=== PATIENT | male | born 1935 | race Caucasian/White ===

== ENCOUNTER → 2016-09-02 | Outpatient (CLI) | payer BC ==
[~2016-09-02] MED LIST: ADVIN50050 INH; CETI10TA84 PO; CHOL200010 OR; CMD5 PO; DILT-115 PO; METO25TA3 PO; MULTI VITAMIMINERALS OR; OMEG120013 OR; PARO40TA2 PO; SYN112 PO; TELM80TA6 PO
--- NOTE | 2016-09-02 12:07 | DIAGNOSTIC IMAGING REPORT ---
LEFT SHOULDER MIN 2 VIEWS ROUTINE CLINICAL HISTORY: PAIN IN LEFT SHOULDER pain COMPARISON: None. DISCUSSION: Moderate degenerative change left glenohumeral joint. Moderate degenerative change acromioclavicular joint. Apical pleural thickening with associated fibrocalcific change. This radiographically appears chronic. There is no evidence for soft tissue swelling. IMPRESSION: Moderate degenerative change. No acute bony abnormality. Electronically signed by: Julius Voss M.D. 09/02/2016 12:05 PM
== END | disposition home or self-care (01) ==
LOC: C.RAD1850 11:44
PROVIDERS: ATTEND Nurse Practitioner Family
DX: M25.512 Pain in left shoulder (principal); M25.612 Stiffness of left shoulder, not elsewhere classified; M19.012 Primary osteoarthritis, left shoulder

== ENCOUNTER → 2017-11-18 | Outpatient (CLI) | payer BC ==
--- NOTE | 2017-11-18 12:20 | DIAGNOSTIC IMAGING REPORT ---
L HIP UNILATERAL 2 VIEWS CLINICAL HISTORY: [id number] LEFT HIP PAIN COMPARISON: None. DISCUSSION: No acute fractures are visualized. There is mild joint space narrowing. There are no erosive or destructive changes. Surgical clips are visualized in the low pelvis. IMPRESSION: 1. No acute fractures 2. Mild joint space narrowing Electronically signed by: Noe Mcgrath M.D. 11/18/2017 12:19 PM Dictated Date/Time: 11/18/2017 12:18 PM
== END | disposition home or self-care (01) ==
LOC: C.RAD1850 11:57
PROVIDERS: ATTEND Family Medicine
DX: S79.912A Unspecified injury of left hip, initial encounter (principal); X58.XXXA Exposure to other specified factors, initial encounter

== ENCOUNTER 2023-04-25 12:19 | Inpatient (IN) ==
[2023-04-25] MEDS ORDERED: SODIUM CHLORIDE 0.9% 1,000 ML IV SCH (12:45)
[2023-04-25] MEDS ORDERED: ACETAMINOPHEN 1,000 MG/100 ML VIAL IV STA (12:45)
--- NOTE | 2023-04-25 13:15 | XRay Report ---
XR chest 1V portable CLINICAL HISTORY: Sepsis. COMPARISON STUDY: Chest radiograph August 17, 2012. FINDINGS: Right paratracheal fullness with leftward deviation of the trachea is again noted. This was shown on prior exam. No pneumothorax or pleural effusion is present. There is no consolidation to akers ggest pneumonia. There is mild cardiomegaly. Subtle interstitial prominence is noted. No overt pulmon jose j edema. Postoperative findings within the spine are partially imaged. There is a loop recorder. IMPRESSION: 1. No consolidation to suggest pneumonia. 2. Cardiomegaly with pulmonary vascular congestion. ACT 112: Negative or not required by law. Electronically signed by: Juan Hernández M.D. 04/25/2023 1:14 PM
[2023-04-25 13:26] LABS: HCO3 VBG 27 mmol/L; Oxygen Saturation VBG < 60.0 %; PCO2 VBG 44 mmHg (38-50); PO2 VBG 26 mmHg
--- NOTE | 2023-04-25 13:26 | Emergency Department Note ---
Impression & Plan Acute confusion, COVID-19, Acute hyponatremia, Non-ST elevation UT (NSTEMI), Elevated CK ED Provider Note HISTORY OF PRESENT ILLNESS: Patient is an 88-year-old male presenting with generalized weakness and after being found down. Patient reportedly was found down on the floor this morning by family when they went to check on him. Patient is unable to recall the events of's to what happened. Son is at bedside and reports that they visited the patient's at [facility] a few days ago and the patient's tested positive for COVID yesterday. Patient had a fever last night. Patient denies any complaints on arrival to the ER. Son reports that he believes his father hit his head when he fell. He is on Coumadin for history of A-fib. Son reports that the patient is more confused than his normal self. ROS: as above PHYSICAL EXAM: Constitutional: Patient appears in no acute distress. HENT: Head: Normocephalic and atraumatic. Eyes: EOMI, PERRL Mouth/Throat: Mucous membranes moist. Neck: Trachea midline. Neck supple. Cardiovascular: Irregular rhythm. No murmurs, rubs or gallops. Intact distal pulses. Pulmonary/Chest: No respiratory distress. Breath sounds clear and equal bilaterally. No wheezes or rales. Abdominal: Abdomen soft, no tenderness, rebound or guarding. Musculoskeletal: Ecchymosis to right anterior shoulder. Skin: Warm and dry. No rash, erythema, pallor or cyanosis Psychiatric: Appropriate mood and affect for situation. Neurological: Alert to self. CN II-XII grossly intact, moving all extremities equally and fully. MDM: - Vitals signs showed fever and hypertension. - History obtained via patient's son, given patient's confusion. Patient presents with generalized weakness and being found down. Patient was found down by a family member today when they went to check on him. Patient is amnestic to the events leading up to the fall. He is on Coumadin for history of A-fib. Patient visited his at a retirement and she recently tested positive for COVID. Patient had a fever last night. - Chronic conditions affecting care: Afib - Differential diagnoses include, but are not limited to: Intracranial hemorrhage; ACS; pneumonia; UTI; electrolyte abnormality - Order placed for continuous cardiac monitoring. At this time, monitor showed rate of 70 bpm with irregular rhythm, per my interpretation. - External medical records reviewed. EMS run sheet reviewed. Patient was vi tally stable in route. No medications were given prehospital. - EKG reviewed by myself showed atrial fibrillation. Rate 93 bpm. QTc 427. No acute ischemic changes. Noted to have an incomplete right bundle branch block. - Laboratory workup interpreted by myself showed leukopenia (WBC 4.33); anemia (Hgb 10.2); hyponatremia (Na 129); elevated CK (2696); elevated troponin (38.7); normal procalcitonin - VBG WNL - CT head wo contrast negative for acute intracranial pathology. - Viral respiratory panel positive for COVID-19 infection. - UA negative for infection - CXR negative for pneumonia, per my interpretation. Radiology notes cardiomegaly with pulmonary vascular congestion. - Repeat troponin elevated at 82.2 - Patient given 1g IV tylenol for fever in ER. - Given 2L NS. - Discussion was had with health care social worker about patient's case and need for admission - Hospitalist consulted for admission - [facility] ASSESSMENT AND PLAN: Diagnosis: Confusion; found down; elevated creatinine kinase; hyponatremia; COVID-19 infection; NSTEMI Plan: admit Past Med/Surg History Social History Smoking Status: Never smoker Hx Alcohol Use: Yes Alcohol type: wine Hx Substance Use: No Preferred Language: [place] Communication Ability: Effective Chocolate Packer Required: Yes Beliefs That Will Affect Care: None Current Living Situation: Spouse Feels Safe at Home: Yes Assistive Devices: Glasses Allergies Allergies Allergy/AdvReac Type Severity Reaction Status Date / Time clarithromycin Allergy Severe HIVES Verified 04/25/23 15:13 Home Meds Home Medications Medication Instructions Recorded Confirmed cholecalciferol (vitamin D3) 50 50 mcg PO DAILY 04/25/23 04/25/23 mcg (2,000 unit) tablet (Vitamin D3) dabigatran etexilate 150 mg capsule 150 mg PO BID 04/25/23 04/25/23 fluticasone 500 mcg-salmeterol 50 1 ea inhalation BID 04/25/23 04/25/23 mcg/dose blistr powdr for inhalation (Wixela Inhub) fluticasone propionate 50 1 spray intranasal BID PRN 04/25/23 04/25/23 mcg/actuation nasal Congestion spray,suspension gabapentin 600 mg tablet 600 mg PO QID 04/25/23 04/25/23 levothyroxine 112 mcg tablet 112 mcg PO DAILYBB 04/25/23 04/25/23 metoprolol succinate 25 mg 12.5 mg PO QAM 04/25/23 04/25/23 tablet,extended release 24 hr Results & Data (ED) Vital Signs Vital Signs - 24 hr 04/25/23 12:08 04/25/23 12:08 04/25/23 12:39 Temperature 38.7 C H Temperature Source Temporal Artery Scan Pulse Rate 89 87 Respiratory Rate 16 16 Blood Pressure 164/75 H Blood Pressure Mean 104 Pulse Oximetry 92 Oxygen Delivery Method Room Air Sepsis Recent Fever Within 48 Hours No Sepsis New/Unexplained Change in Mental Status N/A Sepsis Action Taken by Nursing No Action Required 04/25/23 13:48 04/25/23 13:54 04/25/23 14:01 Temperature 39.5 C H Temperature Source Oral Pulse Rate 82 84 Respiratory Rate 23 23 Blood Pressure 129/68 120/58 L Blood Pressure Mean 88 78 Pulse Oximetry 92 92 Oxygen Delivery Method Room Air Room Air Sepsis Recent Fever Within 48 Hours Sepsis New/Unexplained Change in Mental Status Sepsis Action Taken by Nursing 04/25/23 14:30 04/25/23 14:50 04/25/23 15:00 Temperature 38.5 C H Temperature Source Oral Pulse Rate 80 80 Respiratory Rate 20 19 Blood Pressure 119/59 L 109/61 Blood Pressure Mean 79 77 Pulse Oximetry 95 94 Oxygen Delivery Method Room Air Room Air Sepsis Recent Fever Within 48 Hours Sepsis New/Unexplained Change in Mental Status Sepsis Action Taken by Nursing 04/25/23 15:30 04/25/23 16:00 04/25/23 16:41 Temperature Temperature Source Pulse Rate 78 77 77 Respiratory Rate 18 20 17 Blood Pressure 116/57 L 110/68 109/68 Blood Pressure Mean 76 82 81 Pulse Oximetry 95 95 96 Oxygen Delivery Method Room Air Room Air Room Air Sepsis Recent Fever Within 48 Hours Sepsis New/Unexplained Change in Mental Status Sepsis Action Taken by Nursing 04/25/23 17:00 04/25/23 17:23 04/25/23 17:30 Temperature Temperature Source Pulse Rate 67 78 67 Respiratory Rate 16 18 Blood Pressure 103/60 115/55 L Blood Pressure Mean 74 75 Pulse Oximetry 94 94 Oxygen Delivery Method Room Air Room Air Sepsis Recent Fever Within 48 Hours Sepsis New/Unexplained Change in Mental Status Sepsis Action Taken by Nursing Laboratory Data 04/25/23 13:17 04/25/23 13:11 Lab Results 04/25/23 04/25/23 04/25/23 Range/Units 12:44 13:11 13:11 WBC (4.8-10.8) K/ul RBC (4.70-6.10) M/uL Hgb (14.0-18.0) g/dl Hct (42.0-52.0) % MCV (80.0-100.0) fL MCH (25.0-34.0) pg MCHC (32.0-36.0) g/dL RDW Std Deviation (36.4-46.3) fL RDW Coeff of Gulshan (11.5-14.5) % Plt Count (130-400) K/uL Immature Gran % (Auto) % Neut % (Auto) % Lymph % (Auto) % [place] % (Auto) % Eos % (Auto) % Baso % (Auto) % Neut # (Auto) (1.40-6.50) K/uL Lymph # (Auto) (1.20-3.40) K/uL [place] # (Auto) (0.11-0.59) K/uL Eos # (Auto) (0.00-0.50) K/uL Baso # (Auto) (0.00-0.20) K/uL Immature Gran # (Auto) (0.01-0.20) K/uL Absolute Nucleated RBC (0.00-0.12) K/uL Nucleated RBC % (auto) % Polychromasia Hypochromasia Basophilic Stippling Anisocytosis Tear Drop Cells Ovalocytes VBG pH (7.36-7.41) VBG pCO2 (38-50) mmHg VBG pO2 mmHg VBG HCO3 mmol/L VBG O2 Saturation % VBG Base Excess mEq/L Sodium 129 L (136-145) mmol/L Potassium 3.9 (3.5-5.1) mmol/L Chloride 94 L (98-107) mmol/L Carbon Dioxide 27 (21-32) mmol/L Anion Gap 8 (3-11) BUN 21 (6-23) mg/dl Creatinine 0.75 (0.6-1.4) mg/dl Est Cr Clr Drug Dosing 65.5 ml/min Est GFR ( Amer) 94.3 ml/min Est GFR (Non-Af Amer) 81.3 ml/min BUN/Creatinine Ratio 28.0 H (10-20) Glucose 108 H (70-99(Fasting)) mg/dl Calcium 9.3 (8.6-10.3) mg/dl Total Bilirubin 3.3 H (0.2-1.0) mg/dl Direct Bilirubin 0.6 H (0-0.2) mg/dl AST 47 H (13-39) U/L ALT 18 (7-52) U/L Alkaline Phosphatase 68 (34-104) U/L Total Creatine Kinase 2696 H (30-223) U/L Troponin I High Sens 38.7 H (0-20) pg/ml Total Protein 7.6 (6.0-8.3) gm/dl Albumin 4.5 (3.4-5.0) gm/dl Procalcitonin < 0.05 (0-0.5) ng/ml Urine Color Yellow Urine Appearance Clear (Clear) Urine pH 7.0 (4.5-7.5) Ur Specific Glen 1.021 (1.000-1.030) Urine Protein 1+ H (Negative) Urine Glucose (UA) Negative (Negative) Urine Ketones Trace H (Negative) Urine Blood 3+ H (Negative) Urine Nitrite Negative (Negative) Urine Bilirubin Negative (Negative) Urine Urobilinogen Negative (Negative) Ur Leukocyte Esterase Negative (Negative) Urine WBC (Auto) 1-5 (0-5) /hpf Urine RBC (Auto) 5-10 H (0-4) /hpf U Hyaline Cast (Auto) 1-5 (0-5) /lpf U Epithel Cells (Auto) 10-20 H (0-5) /lpf Urine Bacteria (Auto) Negative (Negative) Adenovirus (PCR) (NotDetected) B. pertussis DNA (PCR) (NotDetected) B.parapertussis DNA PCR (NotDetected) C. pneumoniae DNA (PCR) (NotDetected) Coronavirus OC43 (PCR) (NotDetected) Coronavirus HKU1 (PCR) (NotDetected) Coronavirus 229E (PCR) (NotDetected) SARS-CoV-2 (PCR) (NotDetected) Coronavirus NL63 (PCR) (NotDetected) Human Metapneumovir PCR (NotDetected) Influenza Type A (PCR) (NotDetected) Influenza Type B (PCR) (NotDetected) M. pneumoniae (PCR) (NotDetected) Parainfluenza 1 (PCR) (NotDetected) Parainfluenza 2 (PCR) (NotDetected) Parainfluenza 3 (PCR) (NotDetected) Parainfluenza 4 (PCR) (NotDetected) RSV (PCR) (NotDetected) Entero/Rhino (PCR) (NotDetected) 04/25/23 04/25/23 04/25/23 Range/Units 13:11 13:11 13:17 WBC 4.33 L (4.8-10.8) K/ul RBC 3.73 L (4.70-6.10) M/uL Hgb 10.2 L (14.0-18.0) g/dl Hct 30.8 L (42.0-52.0) % MCV 82.6 (80.0-100.0) fL MCH 27.3 (25.0-34.0) pg MCHC 33.1 (32.0-36.0) g/dL RDW Std Deviation 87.6 H (36.4-46.3) fL RDW Coeff of Gulshan 29.6 H (11.5-14.5) % Plt Count 288 (130-400) K/uL Immature Gran % (Auto) 1.4 % Neut % (Auto) 46.0 % Lymph % (Auto) 21.0 % [place] % (Auto) 30.7 % Eos % (Auto) 0.7 % Baso % (Auto) 0.2 % Neut # (Auto) 1.99 (1.40-6.50) K/uL Lymph # (Auto) 0.91 L (1.20-3.40) K/uL [place] # (Auto) 1.33 H (0.11-0.59) K/uL Eos # (Auto) 0.03 (0.00-0.50) K/uL Baso # (Auto) 0.01 (0.00-0.20) K/uL Immature Gran # (Auto) 0.06 (0.01-0.20) K/uL Absolute Nucleated RBC 0.02 (0.00-0.12) K/uL Nucleated RBC % (auto) 0.5 % Polychromasia 2+ Hypochromasia Present Basophilic Stippling 1+ Anisocytosis Present Tear Drop Cells 1+ Ovalocytes 2+ VBG pH 7.40 (7.36-7.41) VBG pCO2 44 (38-50) mmHg VBG pO2 26 mmHg VBG HCO3 27 mmol/L VBG O2 Saturation < 60.0 % VBG Base Excess 2.0 mEq/L Sodium (136-145) mmol/L Potassium (3.5-5.1) mmol/L Chloride (98-107) mmol/L Carbon Dioxide (21-32) mmol/L Anion Gap (3-11) BUN (6-23) mg/dl Creatinine (0.6-1.4) mg/dl Est Cr Clr Drug Dosing ml/min Est GFR ( Amer) ml/min Est GFR (Non-Af Amer) ml/min BUN/Creatinine Ratio (10-20) Glucose (70-99(Fasting)) mg/dl Calcium (8.6-10.3) mg/dl Total Bilirubin (0.2-1.0) mg/dl Direct Bilirubin (0-0.2) mg/dl AST (13-39) U/L ALT (7-52) U/L Alkaline Phosphatase (34-104) U/L Total Creatine Kinase Cancelled (30-223) U/L Troponin I High Sens (0-20) pg/ml Total Protein (6.0-8.3) gm/dl Albumin (3.4-5.0) gm/dl Procalcitonin (0-0.5) ng/ml Urine Color Urine Appearance (Clear) Urine pH (4.5-7.5) Ur Specific Glen (1.000-1.030) Urine Protein (Negative) Urine Glucose (UA) (Negative) Urine Ketones (Negative) Urine Blood (Negative) Urine Nitrite (Negative) Urine Bilirubin (Negative) Urine Urobilinogen (Negative) Ur Leukocyte Esterase (Negative) Urine WBC (Auto) (0-5) /hpf Urine RBC (Auto) (0-4) /hpf U Hyaline Cast (Auto) (0-5) /lpf U Epithel Cells (Auto) (0-5) /lpf Urine Bacteria (Auto) (Negative) Adenovirus (PCR) (NotDetected) B. pertussis DNA (PCR) (NotDetected) B.parapertussis DNA PCR (NotDetected) C. pneumoniae DNA (PCR) (NotDetected) Coronavirus OC43 (PCR) (NotDetected) Coronavirus HKU1 (PCR) (NotDetected) Coronavirus 229E (PCR) (NotDetected) SARS-CoV-2 (PCR) (NotDetected) Coronavirus NL63 (PCR) (NotDetected) Human Metapneumovir PCR (NotDetected) Influenza Type A (PCR) (NotDetected) Influenza Type B (PCR) (NotDetected) M. pneumoniae (PCR) (NotDetected) Parainfluenza 1 (PCR) (NotDetected) Parainfluenza 2 (PCR) (NotDetected) Parainfluenza 3 (PCR) (NotDetected) Parainfluenza 4 (PCR) (NotDetected) RSV (PCR) (NotDetected) Entero/Rhino (PCR) (NotDetected) 04/25/23 04/25/23 Range/Units 13:48 17:30 WBC (4.8-10.8) K/ul RBC (4.70-6.10) M/uL Hgb (14.0-18.0) g/dl Hct (42.0-52.0) % MCV (80.0-100.0) fL MCH (25.0-34.0) pg MCHC (32.0-36.0) g/dL RDW Std Deviation (36.4-46.3) fL RDW Coeff of Gulshan (11.5-14.5) % Plt Count (130-400) K/uL Immature Gran % (Auto) % Neut % (Auto) % Lymph % (Auto) % [place] % (Auto) % Eos % (Auto) % Baso % (Auto) % Neut # (Auto) (1.40-6.50) K/uL Lymph # (Auto) (1.20-3.40) K/uL [place] # (Auto) (0.11-0.59) K/uL Eos # (Auto) (0.00-0.50) K/uL Baso # (Auto) (0.00-0.20) K/uL Immature Gran # (Auto) (0.01-0.20) K/uL Absolute Nucleated RBC (0.00-0.12) K/uL Nucleated RBC % (auto) % Polychromasia Hypochromasia Basophilic Stippling Anisocytosis Tear Drop Cells Ovalocytes VBG pH (7.36-7.41) VBG pCO2 (38-50) mmHg VBG pO2 mmHg VBG HCO3 mmol/L VBG O2 Saturation % VBG Base Excess mEq/L Sodium (136-145) mmol/L Potassium (3.5-5.1) mmol/L Chloride (98-107) mmol/L Carbon Dioxide (21-32) mmol/L Anion Gap (3-11) BUN (6-23) mg/dl Creatinine (0.6-1.4) mg/dl Est Cr Clr Drug Dosing ml/min Est GFR ( Amer) ml/min Est GFR (Non-Af Amer) ml/min BUN/Creatinine Ratio (10-20) Glucose (70-99(Fasting)) mg/dl Calcium (8.6-10.3) mg/dl Total Bilirubin (0.2-1.0) mg/dl Direct Bilirubin (0-0.2) mg/dl AST (13-39) U/L ALT (7-52) U/L Alkaline Phosphatase (34-104) U/L Total Creatine Kinase (30-223) U/L Troponin I High Sens 82.2 H* D (0-20) pg/ml Total Protein (6.0-8.3) gm/dl Albumin (3.4-5.0) gm/dl Procalcitonin (0-0.5) ng/ml Urine Color Urine Appearance (Clear) Urine pH (4.5-7.5) Ur Specific [place] (1.000-1.030) Urine Protein (Negative) Urine Glucose (UA) (Negative) Urine Ketones (Negative) Urine Blood (Negative) Urine Nitrite (Negative) Urine Bilirubin (Negative) Urine Urobilinogen (Negative) Ur Leukocyte Esterase (Negative) Urine WBC (Auto) (0-5) /hpf Urine RBC (Auto) (0-4) /hpf U Hyaline Cast (Auto) (0-5) /lpf U Epithel Cells (Auto) (0-5) /lpf Urine Bacteria (Auto) (Negative) Adenovirus (PCR) Not Detected (NotDetected) B. pertussis DNA (PCR) Not Detected (NotDetected) B.parapertussis DNA PCR Not Detected (NotDetected) C. pneumoniae DNA (PCR) Not Detected (NotDetected) Coronavirus OC43 (PCR) Not Detected (NotDetected) Coronavirus HKU1 (PCR) Not Detected (NotDetected) Coronavirus 229E (PCR) Not Detected (NotDetected) SARS-CoV-2 (PCR) DETECTED A* (NotDetected) Coronavirus NL63 (PCR) Not Detected (NotDetected) Human Metapneumovir PCR Not Detected (NotDetected) Influenza Type A (PCR) Not Detected (NotDetected) Influenza Type B (PCR) Not Detected (NotDetected) M. pneumoniae (PCR) Not Detected (NotDetected) Parainfluenza 1 (PCR) Not Detected (NotDetected) Parainfluenza 2 (PCR) Not Detected (NotDetected) Parainfluenza 3 (PCR) Not Detected (NotDetected) Parainfluenza 4 (PCR) Not Detected (NotDetected) RSV (PCR) Not Detected (NotDetected) Entero/Rhino (PCR) Not Detected (NotDetected) Administered Medications Discontinued Medications Sodium Chloride (Nss 1000ml) 1,000 mls @ 999 mls/hr IV .Q1H1M EVE Stop: 04/25/23 13:45 Last Admin: 04/25/23 13:08 Dose: 999 mls/hr Documented By: CESAR Acetaminophen (Ofirmev) 1,000 mg in 100 mls @ 400 mls/hr IV NOW STA Stop: 04/25/23 12:59 Last Infusion: 04/25/23 13:52 Dose: 0 mls/hr Documented By: Admin: 04/25/23 13:07 Dose: 400 mls/hr Documented By: CESAR Sodium Chloride (Nss 1000ml) 1,000 mls @ 999 mls/hr IV .Q1H1M ONE Stop: 04/25/23 15:54 Last Admin: 04/25/23 14:57 Dose: 999 mls/hr Documented By: [facility] Imaging Data Radiologist's Impression: Chest X-Ray 04/25/23 12:45 XR chest 1V portable CLINICAL HISTORY: Sepsis. COMPARISON STUDY: Chest radiograph August 17, 2012. FINDINGS: Right paratracheal fullness with leftward deviation of the trachea is again noted. This was shown on prior exam. No pneumothorax or pleural effusion is present. There is no consolidation to suggest pneumonia. There is mild cardiomegaly. Subtle interstitial prominence is noted. No overt pulmonary edema. Postoperative findings within the spine are partially imaged. There is a loop recorder. IMPRESSION: 1. No consolidation to suggest pneumonia. 2. Cardiomegaly with pulmonary vascular congestion. ACT 112: Negative or not required by law. Electronically signed by: Juan Hernández M.D. 04/25/2023 1:[address] 04/25/23 12:45 CT OF THE HEAD WITHOUT CONTRAST CLINICAL HISTORY: fall from standing COMPARISON STUDY: No previous studies for comparison. CT DOSE: 625.80 mGy.cm TECHNIQUE: Helical axial images of the head were obtained without IV contrast. Automated exposure control was utilized for the study. A dose lowering technique was utilized adhering to the principles of ALARA. FINDINGS: No acute intracranial hemorrhage, midline shift or mass effect is present. The ventricular system is unremarkable. The basal cisterns are patent. No extra-axial collections are present. White matter hypodensities favor small vessel disease. There are no findings to suggest acute dural sinus thrombosis or acute territorial infarct. No significant calvarial abnormalities are present. Incidental note is made of a small metallic density within the right forehead. IMPRESSION: No acute intracranial findings. ACT 112: Negative or not required by law. Electronically signed by: Juan Hernández M.D. 04/25/2023 1:47 PM Discharge Plan Visit Data Chief Complaint: Illness ED Provider: Karla Jaquez Discharge Problem: Acute confusion, COVID-19, Acute hyponatremia, Non-ST elevation UT (NSTEMI), Elevated CK Forms Stand Alone Forms: [facility] Prescriptions Prescriptions: No Action gabapentin 600 mg tablet 600 mg PO QID fluticasone propion-salmeterol [Wixela Inhub] 500-50 mcg/dose blister with device 1 ea INHALATION BID levothyroxine 112 mcg tablet 112 mcg PO DAILYBB dabigatran etexilate 150 mg capsule 150 mg PO BID cholecalciferol (vitamin D3) [Vitamin D3] 50 mcg (2,000 unit) Tablet 50 mcg PO DAILY metoprolol succinate 25 mg tablet extended release 24 hr 12.5 mg PO QAM fluticasone propionate 50 mcg/actuation spray,suspension 1 spray INTRANASAL BID PRN (Reason: Congestion) Referrals Referrals: Drake Macias MD [Physician] -
[2023-04-25 13:37] LABS: Appearance Urine Clear (Clear); Bacteria Urine Automated Negative (Negative); Bilirubin Urine Negative (Negative); Blood Urine 3+ (Negative); Color Urine Yellow; Glucose Urine UA Negative (Negative); Ketones Urine Trace (Negative); Leukocyte Esterase Urine Negative (Negative); Nitrite Urine Negative (Negative); Protein Urine 1+ (Negative); Specific Gravity Urine 1.021 (1.000-1.030); Urobilinogen Urine Negative (Negative)
[2023-04-25 13:48] LABS: Calcium 9.3 mg/dl (8.6-10.3); Creatinine Clr Calc Pharmacy 65.5 ml/min; Est GFR (African American) 94.3 ml/min; Est GFR (Non-African American) 81.3 ml/min; Potassium 3.9 mmol/L (3.5-5.1)
--- NOTE | 2023-04-25 13:49 | CT Scan Report ---
CT OF THE HEAD WITHOUT CONTRAST CLINICAL HISTORY: fall from standing COMPARISON STUDY: No previous studies for comparison. CT DOSE: 625.80 mGy.cm TECHNIQUE: Helical axial images of the head were obtained without IV contrast. Automated exposure con trol was utilized for the study. A dose lowering technique was utilized adhering to the principles o f ALARA. FINDINGS: No acute intracranial hemorrhage, midline shift or mass effect is present. The ventricular system is unremarkable. The basal cisterns are patent. No extra-axial collections are present. White matter hypodensities favor small vessel disease. There are no findings to suggest acute dural sinus t hrombosis or acute territorial infarct. No significant calvarial abnormalities are present. Incidenta l note is made of a small metallic density within the right forehead. IMPRESSION: No acute intracranial findings. ACT 112: Negative or not required by law. Electronically signed by: Juan Hernández M.D. 04/25/2023 1:47 PM
[2023-04-25 13:54] LABS: Troponin I High Sensitivity 38.7 pg/ml (0-20)
[2023-04-25 14:26] LABS: Albumin Level 4.5 gm/dl (3.4-5.0); Bilirubin Direct 0.6 mg/dl (0-0.2); Bilirubin,Total 3.3 mg/dl (0.2-1.0); Total Protein 7.6 gm/dl (6.0-8.3)
[2023-04-25] MEDS ORDERED: SODIUM CHLORIDE 0.9% 1,000 ML IV ONE (14:54)
[2023-04-25 15:23] LABS: Adenovirus PCR Not Detected (NotDetected); Bordetella parapertussis PCR Not Detected (NotDetected); Bordetella pertussis PCR Not Detected (NotDetected); Chlamydia pneumoniae PCR Not Detected (NotDetected); Coronavirus 229E PCR Not Detected (NotDetected); Coronavirus HKU1 PCR Not Detected (NotDetected); Coronavirus NL63 PCR Not Detected (NotDetected); Coronavirus OC43PCR Not Detected (NotDetected); Human Metapneumovirus PCR Not Detected (NotDetected); Influenza A PCR Not Detected (NotDetected); Influenza B PCR Not Detected (NotDetected); Mycoplasma pneumoniae PCR Not Detected (NotDetected); Parainfluenza Virus 1 PCR Not Detected (NotDetected); Parainfluenza Virus 2 PCR Not Detected (NotDetected); Parainfluenza Virus 3 PCR Not Detected (NotDetected); Parainfluenza Virus 4 PCR Not Detected (NotDetected); Respiratory Syncytial VirusPCR Not Detected (NotDetected); Rhinovirus/Enterovirus PCR Not Detected (NotDetected)
[2023-04-25 15:34] LABS: Coronavirus CoV-2 (COVID19)PCR DETECTED (NotDetected)
[2023-04-25 17:22] LABS: Anisocytosis Present; Basophilic Stippling 1+; Basophils # (auto) 0.01 K/uL (0.00-0.20); Basophils % (auto) 0.2 %; Eosinophils # (auto) 0.03 K/uL (0.00-0.50); Eosinophils % (auto) 0.7 %; Hematocrit (blood only) 30.8 % (42.0-52.0); Hemoglobin 10.2 g/dl (14.0-18.0); Hypochromasia Present; Immature Granulocytes # (auto) 0.06 K/uL (0.01-0.20); Immature Granulocytes % (auto) 1.4 %; Lymphocytes # (auto) 0.91 K/uL (1.20-3.40); Mean Corpuscular Hemoglobin 27.3 pg (25.0-34.0); Mean Corpuscular Hgb Conc 33.1 g/dL (32.0-36.0); Mean Corpuscular Volume 82.6 fL (80.0-100.0); Monocytes # (auto) 1.33 K/uL (0.11-0.59); Monocytes % (auto) 30.7 %; Neutrophils # (auto) 1.99 K/uL (1.40-6.50); Nucleated RBC # (auto) 0.02 K/uL (0.00-0.12); Nucleated RBC % (auto) 0.5 %; Ovalocytes 2+; Platelet Count 288 K/uL (130-400); Polychromasia 2+; RDW Coefficient of Variation 29.6 % (11.5-14.5); RDW Standard Deviation 87.6 fL (36.4-46.3); Red Blood Count 3.73 M/uL (4.70-6.10); Tear Drop Cells 1+; White Blood Count 4.33 K/ul (4.8-10.8)
--- NOTE | 2023-04-25 17:35 | Electrocardiogram Report ---
Test Reason : Blood Pressure : / mmHG Vent. Rate : 093 BPM Atrial Rate : 000 BPM P-R Int : 000 ms QRS Dur : 092 ms QT Int : 344 ms P-R-T Axes : 000 043 075 degrees QTc Int : 427 ms Atrial fibrillation Incomplete right bundle branch block Nonspecific ST abnormality Abnormal ECG When compared with ECG of 25-DEC-2009 07:10, Atrial fibrillation has replaced Sinus rhythm Left anterior fascicular block is no longer Present Confirmed by Amando Farmer ([id number]) on 04/25/2023 5:35:15 PM Referred By: Confirmed By:Doug Farmer
[2023-04-25 18:30] LABS: Troponin I High Sensitivity 82.2 pg/ml (0-20)
--- NOTE | 2023-04-25 19:25 | History & Physical Report ---
Date of Service April 25, 2023 Assessment & Plan (1) COVID-19: Plan: Symptomatic with fevers Paxlovid - suggest switching dabigatran to Lovenox while on Paxlovid due to interaction Monitor for worsening hypoxia which may be due to pulmonary edema due to fluids given rather than specifically COVID-19 (2) Elevated troponin: Plan: trend overnight but low suspicion of ACS, suspect due to his atrial fibrillation with fall if significant raised could consider TTE (3) Rhabdomyolysis: Plan: CK 2696, repeat with AM labs Additional NSS 1L @ 125ml/hr, followed by LR @ 125ml/hr, monitor for worsening pulmonary edema (4) Fall: Plan: Longstanding history of ambulatory dysfunction. Increased risk due to neuropathy (reportedly from his ankylosing spondylitis). (5) Acute hyponatremia: Plan: ?nutritional vs SIADH, patient mildly hypovolemic - NSS given in ER and will give additional 1L, repeat Na levels in AM (6) Neuropathy: Plan: Continue gabapentin - clearly this can increase risk of falls but reportedly has severe neuropathic pains without this (7) Permanent atrial fibrillation: Plan: Dabigatran switched to Lovenox as above for anticoagulation Continue metoprolol succinate for rate control Plan VTE Prophylaxis - Lovenox 1mg/kg BID Diet - regular Disposition - admit to med/tele Admission and Anticipated Discharge Date Admission Date: April 25, 2023 History of Present Illness Chief Complaint: Fall, fevers Primary Care Provider: Candido Washington MD Alvaro izquierdo is an 88 year old male who presents to the ER after a fall and not being able to get back up earlier today. The patient reports no currently concerns. He notes getting up bed around 6am this morning and lost his balance and fell down. No chest pain, dizziness or shortness of breath after falling. He reports chronic problems with neuropathy especially in his left foot which occasional cause him to fall. His daughter notes usually he is able to get himself back up but he was unable to do this today. In the ER he was noted to be having fevers but the patient reports feeling fine during this. No shortness of breath, cough, nasal congestion or sore throat (although his daughter notes she has been hearing him cough). He has never had a COVID infection prior. Had vaccine and all boosters available. Positive exposure with his in [facility] who tested positive after he saw her last week. Allergies Allergy/AdvReac Type Severity Reaction Status Date / Time clarithromycin Allergy Severe HIVES Verified 04/25/23 15:13 Home Medications Medication Instructions Recorded Confirmed Type cholecalciferol (vitamin D3) 50 50 mcg PO DAILY 04/25/23 04/25/23 History mcg (2,000 unit) tablet (Vitamin D3) dabigatran etexilate 150 mg capsule 150 mg PO BID 04/25/23 04/25/23 History fluticasone 500 mcg-salmeterol 50 1 ea inhalation BID 04/25/23 04/25/23 History mcg/dose blistr powdr for inhalation (Wixela Inhub) fluticasone propionate 50 1 spray intranasal BID PRN 04/25/23 04/25/23 History mcg/actuation nasal Congestion spray,suspension gabapentin 600 mg tablet 600 mg PO QID 04/25/23 04/25/23 History levothyroxine 112 mcg tablet 112 mcg PO DAILYBB 04/25/23 04/25/23 History metoprolol succinate 25 mg 12.5 mg PO QAM 04/25/23 04/25/23 History tablet,extended release 24 hr nirmatrelvir 300 mg (150 mg See Rx Instructions PO .COMPLEX 04/25/23 Rx x2)-ritonavir 100 mg tablet,dose #30 ea pack (Paxlovid) Past Med/Surg History Medical History (Updated 04/26/23 @ 07:02 by Drake Del Cid MD) Ankylosing spondylitis Neuropathy Permanent atrial fibrillation Social History Smoking Status: Former smoker Hx Alcohol Use: No Hx Substance Use: No Preferred Language: Estonian Communication Ability: Effective Puttying And Calking Supervisor Required: No Beliefs That Will Affect Care: Jew Current Living Situation: Alone Feels Safe at Home: Yes Assistive Devices: Walker Review of Systems Review of Systems: All systems reviewed & are unremarkable except as noted in HPI & below Physical Exam Constitutional: WD/WN, vitals as above Eyes: PERRL, conjunctivae normal, anicteric sclerae ENMT: external ear and nose normal, oropharynx normal Neck: trachea midline, no thyromegaly Respiratory: normal respiratory effort, lungs clear to auscultation Cardiovascular: Rate/Rhythm: regular rate and + irregularly irregular Heart Sounds: no murmur Vessels: no JVD Extremities: normal capillary refill and + pedal edema (1+ ankles b/l equal); no calf tenderness Gastrointestinal (Abdomen): normal bowel sounds, soft, nontender, no hepatosplenomegaly Musculoskeletal: no cyanosis or clubbing, extremities motor strength 5/5 Skin: no rashes, warm and dry Neurologic: moves all extremities and awake; not confused Motor/Sensory: + sensory deficit (left foot) Psychiatric: A+Ox3, euthymic affect Results & Data Results & Data Vital Signs (Past 12 Hours) Vital Signs Temp Pulse Resp BP Pulse Ox O2 Del Method 04/25/23 18:30 60 22 106/57 L 94 Room Air 04/25/23 18:00 66 22 106/61 96 Room Air 04/25/23 17:30 67 18 115/55 L 94 Room Air 04/25/23 17:23 78 04/25/23 17:00 67 16 103/60 94 Room Air 04/25/23 16:41 77 17 109/68 96 Room Air 04/25/23 16:00 77 20 110/68 95 Room Air 04/25/23 15:30 78 18 116/57 L 95 Room Air 04/25/23 15:00 80 19 109/61 94 Room Air 04/25/23 14:50 38.5 C H 04/25/23 14:30 80 20 119/59 L 95 Room Air 04/25/23 14:01 84 23 120/58 L 92 Room Air 04/25/23 13:54 39.5 C H 04/25/23 13:48 82 23 129/68 92 Room Air 04/25/23 12:39 87 04/25/23 12:08 16 04/25/23 12:08 38.7 C H 89 16 164/75 H 92 Room Air Laboratory Results Abnormal lab results 04/25/23 04/25/23 04/25/23 Range/Units 12:44 13:11 13:17 WBC 4.33 L (4.8-10.8) K/ul RBC 3.73 L (4.70-6.10) M/uL Hgb 10.2 L (14.0-18.0) g/dl Hct 30.8 L (42.0-52.0) % RDW Std Deviation 87.6 H (36.4-46.3) fL RDW Coeff of Gulshan 29.6 H (11.5-14.5) % Lymph # (Auto) 0.91 L (1.20-3.40) K/uL [place]amo # (Auto) 1.33 H (0.11-0.59) K/uL Sodium 129 L (136-145) mmol/L Chloride 94 L (98-107) mmol/L BUN/Creatinine Ratio 28.0 H (10-20) Glucose 108 H (70-99(Fasting)) mg/dl Total Bilirubin 3.3 H (0.2-1.0) mg/dl Direct Bilirubin 0.6 H (0-0.2) mg/dl AST 47 H (13-39) U/L Total Creatine Kinase 2696 H (30-223) U/L Troponin I High Sens 38.7 H (0-20) pg/ml Urine Protein 1+ H (Negative) Urine Ketones Trace H (Negative) Urine Blood 3+ H (Negative) Urine RBC (Auto) 5-10 H (0-4) /hpf U Epithel Cells (Auto) 10-20 H (0-5) /lpf SARS-CoV-2 (PCR) (NotDetected) 04/25/23 04/25/23 04/26/23 Range/Units 13:48 17:30 00:42 WBC (4.8-10.8) K/ul RBC (4.70-6.10) M/uL Hgb (14.0-18.0) g/dl Hct (42.0-52.0) % RDW Std Deviation (36.4-46.3) fL RDW Coeff of Gulshan (11.5-14.5) % Lymph # (Auto) (1.20-3.40) K/uL [place] # (Auto) (0.11-0.59) K/uL Sodium (136-145) mmol/L Chloride (98-107) mmol/L BUN/Creatinine Ratio (10-20) Glucose (70-99(Fasting)) mg/dl Total Bilirubin (0.2-1.0) mg/dl Direct Bilirubin (0-0.2) mg/dl AST (13-39) U/L Total Creatine Kinase (30-223) U/L Troponin I High Sens 82.2 H* D 93.7 H* D (0-20) pg/ml Urine Protein (Negative) Urine Ketones (Negative) Urine Blood (Negative) Urine RBC (Auto) (0-4) /hpf U Epithel Cells (Auto) (0-5) /lpf SARS-CoV-2 (PCR) DETECTED A* (NotDetected) Diagnostic Findings CT OF THE HEAD WITHOUT CONTRAST CLINICAL HISTORY: fall from standing COMPARISON STUDY: No previous studies for comparison. CT DOSE: 625.80 mGy.cm TECHNIQUE: Helical axial images of the head were obtained without IV contrast. Automated exposure control was utilized for the study. A dose lowering technique was utilized adhering to the principles of ALARA. FINDINGS: No acute intracranial hemorrhage, midline shift or mass effect is present. The ventricular system is unremarkable. The basal cisterns are patent. No extra-axial collections are present. White matter hypodensities favor small vessel disease. There are no findings to suggest acute dural sinus thrombosis or acute territorial infarct. No significant calvarial abnormalities are present. Incidental note is made of a small metallic density within the right forehead. IMPRESSION: No acute intracranial findings. XR chest 1V portable CLINICAL HISTORY: Sepsis. COMPARISON STUDY: Chest radiograph August 17, 2012. FINDINGS: Right paratracheal fullness with leftward deviation of the trachea is again noted. This was shown on prior exam. No pneumothorax or pleural effusion is present. There is no consolidation to suggest pneumonia. There is mild cardiomegaly. Subtle interstitial prominence is noted. No overt pulmonary edema. Postoperative findings within the spine are partially imaged. There is a loop recorder. IMPRESSION: 1. No consolidation to suggest pneumonia. 2. Cardiomegaly with pulmonary vascular congestion. Medications Administered ER Medications Given: Normal saline 1L bolus x2 Acetaminophen 1000mg IV ECG Rate (beats per minute): 93 Rhythm: atrial fibrillation Findings: + nonspecific-ST abn and + RBBB (incomplete) Comparison ECG Date: from (December 25, 2009) Change: the following changes noted (atrial fibrillation replaced NSR) Code Status & VTE Plan Code Status DNR/DNI per patient wishes VTE Prophylaxis Plan VTE Prophylaxis will be ordered: Yes PG Care Time/CCT Total # of Minutes Spent Total Time Spent with Patient: Total time spent is greater than 50% in coordination of care (as documented) at patient's floor/unit and/or counseling patient: Coding Level of Care Code 97288 INT INP/OBS CARE 3/75MIN Diagnoses COVID-19 U07.1 Elevated troponin R77.8 Rhabdomyolysis M62.82 Fall W19.XXXA Acute hyponatremia E87.1 Neuropathy G62.9 Permanent atrial fibrillation I48.21
[2023-04-25 20:10] LABS: Magnesium 1.9 mg/dl (1.7-2.4)
[2023-04-25] MEDS: SODIUM CHLORIDE 0.9% 1,000 ML IV SCH (21:04)
[2023-04-25] MEDS ORDERED: ACETAMINOPHEN 325 MG TAB PO PRN (22:14)
[2023-04-25] MEDS ORDERED: ENOXAPARIN 80 MG/0.8 ML SYR SQ SCH (22:30)
[2023-04-25] MEDS: GABAPENTIN 600 MG TAB PO SCH (22:46)
[2023-04-26] MEDS: SODIUM CHLORIDE 0.9% 1,000 ML IV SCH ×2 (02:33→13:18)
[2023-04-26] MEDS: LEVOTHYROXINE SODIUM 112 MCG TABLET PO SCH (05:21)
[2023-04-26 07:07] LABS: Hematocrit (blood only) 24.4 % (42.0-52.0); Mean Corpuscular Hemoglobin 27.1 pg (25.0-34.0); Mean Corpuscular Hgb Conc 32.8 g/dL (32.0-36.0); Mean Corpuscular Volume 82.7 fL (80.0-100.0); Platelet Count 206 K/uL (130-400); RDW Coefficient of Variation 29.2 % (11.5-14.5); RDW Standard Deviation 86.3 fL (36.4-46.3); Red Blood Count 2.95 M/uL (4.70-6.10); White Blood Count 3.04 K/ul (4.8-10.8)
[2023-04-26 07:35] LABS: Albumin Globulin Ratio 1.6 (0.9-2); Albumin Level 3.5 gm/dl (3.4-5.0); BUN Creatinine Ratio 36.4 (10-20); Bilirubin,Total 2.5 mg/dl (0.2-1.0); Creatinine Clr Calc Pharmacy 89.1 ml/min; Est GFR (African American) 107.1 ml/min; Est GFR (Non-African American) 92.4 ml/min; Globulin 2.2 gm/dl (2.5-4.0); Potassium 3.5 mmol/L (3.5-5.1); Total Protein 5.7 gm/dl (6.0-8.3)
[2023-04-26 07:43] LABS: Anisocytosis Present; Basophils # (auto) 0.01 K/uL (0.00-0.20); Basophils % (auto) 0.3 %; Eosinophils # (auto) 0.01 K/uL (0.00-0.50); Eosinophils % (auto) 0.3 %; Immature Granulocytes # (auto) 0.04 K/uL (0.01-0.20); Immature Granulocytes % (auto) 1.3 %; Lymphocytes # (auto) 0.96 K/uL (1.20-3.40); Lymphocytes % (auto) 31.6 %; Monocytes # (auto) 1.51 K/uL (0.11-0.59); Monocytes % (auto) 49.7 %; Neutrophils # (auto) 0.51 K/uL (1.40-6.50); Neutrophils % (auto) 16.8 %; Ovalocytes 1+; Polychromasia 2+; Tear Drop Cells 1+
[2023-04-26] MEDS: METOPROLOL SUCC 25MG EXT REL TAB PO SCH (08:44)
[2023-04-26] MEDS: GABAPENTIN 600 MG TAB PO SCH ×4 (08:44→20:07)
[2023-04-26] MEDS: DABIGATRAN ETEXILATE 75 MG CAP PO SCH ×2 (08:44→20:07)
[2023-04-26] MEDS: FLUTICASONE/VILANTEROL 100/25MCG 14 PUFFS/INHALER INH SCH (08:45)
[2023-04-26] MEDS: CHOLECALCIFEROL 1,000 UNITS 25 MCG TAB PO SCH (08:45)
--- NOTE | 2023-04-26 12:45 | Hospitalist Progress Note ---
Date of Service April 26, 2023 Assessment & Plan (1) COVID-19: Plan: Nasal swab positivity only. No overt symptoms. No treatment needed at this time. (2) Elevated troponin: Plan: No evidence of acute coronary syndrome. No chest pain. No acute EKG changes. This is probably supply/demand mismatch (3) Rhabdomyolysis: Plan: Mild. Continue IV fluids. Serial labs (4) Fall: Plan: Mechanical. No syncope. Longstanding history of ambulatory dysfunction. OT and PT evaluations requested (5) Acute hyponatremia: Plan: Mildly low serum osmolarity. Currently on IV fluids. Serial labs (6) Neuropathy: Plan: Chronic peripheral neuropathy. Treated with gabapentin (7) Permanent atrial fibrillation: Plan: Stable. Continue dabigatran and metoprolol Plan Hopeful discharge back to his home tomorrow, April 27 Admission and Anticipated Discharge Date Admission Date: April 25, 2023 Subjective Alert and oriented. No distress. No overt symptoms of viral illness at this time. He states he simply fell at home when he was trying to get to the bathroom and laid on the floor for 5 hours because he could not get up. He has mild rhabdomyolysis. He has COVID positivity on swab testing but no overt symptoms. His however is ill with COVID. Continue IV fluids for now. Request OT and PT evaluations. Sodium levels are mildly low and will be followed. He was placed on Lovenox 1 mg/kg subcutaneously twice daily on admission but this has been switched back to his usual dabigatran 150 mg twice daily. Serum osmolarity is mildly low at 275. Review of Systems Review of Systems: Constitutional-no fever or chills ENT-no blurred vision, no double vision, no epistaxis, no sore throat Respiratory-no cough, no wheezing, no shortness of breath Cardiac-no palpitations, no chest pain, no syncope GI-no nausea, vomiting, diarrhea, melena, hematochezia -no urinary retention, no urinary incontinence, no dysuria, no hematuria Musculoskeletal-no joint pain, no muscle tenderness Skin-no bruising, no rashes, no pruritus Neuro-no focal deficits, no paresthesia Psych-no depression, no anxiety Physical Exam Physical Exam: General-alert and oriented x3, no fevers, no chills HEENT-head atraumatic and normocephalic, pupils equal and reactive to light, extraocular muscles intact Neck-no lymphadenopathy or thyromegaly, trachea midline Chest-clear to auscultation percussion. No rales wheezing or rhonchi Cardiac-regular rate and rhythm, normal S1 and S2 Abdomen-normal bowel sounds, nontender, no hepatosplenomegaly Extremities-no cyanosis, clubbing, or edema Neuro-cranial nerves II through XII intact, motor and sensory function within normal limits, strength symmetrical , no focal deficits Psych-normal affect, normal mood Results & Data Results & Data Vital Signs (Past 12 Hours) Vital Signs Temp Pulse Pulse Pulse Resp BP Pulse Ox 04/26/23 09:46 04/26/23 07:51 69 04/26/23 07:14 36.8 C 62 20 115/61 94 04/26/23 03:00 37.1 C 72 14 95/56 L 93 O2 Del Method 04/26/23 09:46 Room Air 04/26/23 07:51 04/26/23 07:14 Room Air 04/26/23 03:00 Room Air Laboratory Results 04/26/23 06:07 04/26/23 06:07 PG Care Time/CCT Total # of Minutes Spent Total Time Spent with Patient: Total time spent is greater than 50% in coordination of care (as documented) at patient's floor/unit and/or counseling patient: Coding Level of Care Code 71740 SUB INP/OBS CARE 3/50MIN Diagnoses COVID-19 U07.1 Elevated troponin R77.8 Rhabdomyolysis M62.82 Fall W19.XXXA Acute hyponatremia E87.1 Neuropathy G62.9 Permanent atrial fibrillation I48.21
[2023-04-27] MEDS: SODIUM CHLORIDE 0.9% 1,000 ML IV SCH ×2 (03:19→14:18)
[2023-04-27] MEDS: LEVOTHYROXINE SODIUM 112 MCG TABLET PO SCH (05:44)
[2023-04-27] MEDS: METOPROLOL SUCC 25MG EXT REL TAB PO SCH (09:37)
[2023-04-27] MEDS: FLUTICASONE/VILANTEROL 100/25MCG 14 PUFFS/INHALER INH SCH (09:37)
[2023-04-27] MEDS: CHOLECALCIFEROL 1,000 UNITS 25 MCG TAB PO SCH (09:38)
[2023-04-27] MEDS: DABIGATRAN ETEXILATE 75 MG CAP PO SCH (09:39)
[2023-04-27 10:19] LABS: Hematocrit (blood only) 27.3 % (42.0-52.0); Mean Corpuscular Hemoglobin 27.4 pg (25.0-34.0); Platelet Count 198 K/uL (130-400); RDW Coefficient of Variation 29.2 % (11.5-14.5); Red Blood Count 3.29 M/uL (4.70-6.10); White Blood Count 3.48 K/ul (4.8-10.8)
[2023-04-27 10:29] LABS: BUN Creatinine Ratio 28.3 (10-20); Creatinine Clr Calc Pharmacy 91.3 ml/min; Est GFR (African American) 108.7 ml/min; Est GFR (Non-African American) 93.8 ml/min; Potassium 3.5 mmol/L (3.5-5.1)
[2023-04-27] MEDS: GABAPENTIN 600 MG TAB PO SCH ×2 (10:29→13:15)
[2023-04-27 10:51] LABS: Anisocytosis Present; Eosinophils # (auto) 0.02 K/uL (0.00-0.50); Eosinophils % (auto) 0.6 %; Hypochromasia Present; Immature Granulocytes # (auto) 0.04 K/uL (0.01-0.20); Immature Granulocytes % (auto) 1.1 %; Lymphocytes # (auto) 0.88 K/uL (1.20-3.40); Lymphocytes % (auto) 25.3 %; Monocytes # (auto) 1.49 K/uL (0.11-0.59); Monocytes % (auto) 42.8 %; Neutrophils # (auto) 1.05 K/uL (1.40-6.50); Neutrophils % (auto) 30.2 %; Ovalocytes 1+; Polychromasia 1+; Tear Drop Cells 1+
--- NOTE | 2023-04-27 13:32 | Communication Note ---
Demand ischemia 88-year-old male who was found on the floor after an unknown amount of time and presents with rhabdomyolysis. Plan: No evidence of acute coronary syndrome. No chest pain. No acute EKG changes. This is probably supply/demand mismatch As above. Serial high-sensitivity troponins 38.7, 82.2, 93.7, 84.8, 69.2 Risk Factor(s): Age, prolonged downtime, physiological stress, rhabdomyolysis Treatment: IV NS boluses then primary, daily PRP's,
--- NOTE | 2023-04-27 13:33 | Discharge Summary ---
Date of Service April 27, 2023 Admission HPI Per Admitting Provider Alvaro izquierdo is an 88 year old male who presents to the ER after a fall and not being able to get back up earlier today. The patient reports no currently concerns. He notes getting up bed around 6am this morning and lost his balance and fell down. No chest pain, dizziness or shortness of breath after falling. He reports chronic problems with neuropathy especially in his left foot which occasional cause him to fall. His daughter notes usually he is able to get himself back up but he was unable to do this today. In the ER he was noted to be having fevers but the patient reports feeling fine during this. No shortness of breath, cough, nasal congestion or sore throat (although his daughter notes she has been hearing him cough). He has never had a COVID infection prior. Had vaccine and all boosters available. Positive exposure with his in [facility] who tested positive after he saw her last week. Principal Diagnosis COVID 19 Discharge Exam General-alert and oriented x3, no fevers, no chills HEENT-head atraumatic and normocephalic, pupils equal and reactive to light, extraocular muscles intact Neck-no lymphadenopathy or thyromegaly, trachea midline Chest-clear to auscultation percussion. No rales wheezing or rhonchi Cardiac-regular rate and rhythm, normal S1 and S2 Abdomen-normal bowel sounds, nontender, no hepatosplenomegaly Extremities-no cyanosis, clubbing, or edema Neuro-cranial nerves II through XII intact, motor and sensory function within normal limits, strength symmetrical , no focal deficits Psych-normal affect, normal mood Discharge Data Allergies Allergy/AdvReac Type Severity Reaction Status Date / Time clarithromycin Allergy Severe HIVES Verified 04/25/23 15:13 Consultations 04/25/23 18:20 ED Decision to Admit Stat Ordered Studies 04/25/23 12:45 CT head/brain wo con Stat Hospital Course (1) COVID-19: Nasal swab positivity only. No overt symptoms. No treatment needed at this time. discharge insturctions given to patient, and noted below. (2) Elevated troponin: Demand ischemia No evidence of acute coronary syndrome. No chest pain. No acute EKG changes. This is probably supply/demand mismatch (3) Rhabdomyolysis: Mild. Continue IV fluids. Serial labs (4) Fall: Mechanical. No syncope. Longstanding history of ambulatory dysfunction. OT and PT evaluations requested (5) Acute hyponatremia: Mildly low serum osmolarity. Currently on IV fluids. Serial labs (6) Neuropathy: Chronic peripheral neuropathy. Treated with gabapentin (7) Permanent atrial fibrillation: Stable. Continue dabigatran and metoprolol Total Time Total Time Spent Total Time Spent (In Minutes): 32 Discharge Plan Discharge Items Patient Disposition: Home - Home Health Services Reason For Visit: COVID-19, RHABDOMYOLYSIS Discharge Diagnosis: Covid 19 Activity: Resume your previous activity Non-emergency contact: Primary Care Provider Call non-emergency contact if: you have any medication questions Follow-up/Referrals: Candido Washington MD [Primary Care Provider] - 05/07/23 10:25 am (THIS APPOINTMENT WILL BE AT [facility]) Diet: Heart Healthy Addtl Attending Provider Instructions: When you have rhabdomyolysis (say "bvl-mtk-oi-AH-radha-suss"), dying muscle cells cause toxins to build up in the blood. If not treated, it can cause life- threatening damage to the body's organs. It can be caused by many things, such as severe muscle injury, some medicines (like statins), the flu, and certain blood infections. Symptoms may include weak muscles, pain, stiffness, fever, and nausea. Your urine may also be dark. You will get treatment in the hospital. If possible, the doctor will stop the cause of muscle cell . The doctor will take steps to protect your organs. You may have to stop taking certain medicines if they are the cause of the problem. You will also get treatment to help the kidneys remove the toxins from your blood. This includes plenty of fluids. You may get fluids through a vein (by I.V.). You may also need dialysis. Follow-up care is a childress part of your treatment and safety. Be sure to make and go to all appointments, and call your doctor if you are having problems. It's also a good idea to know your test results and keep a list of the medicines you take. How can you care for yourself at home? Take pain medicines exactly as directed. If the doctor gave you a prescription medicine for pain, take it as prescribed. If you are not taking a prescription pain medicine, ask your doctor if you can take an [id number] medicine. Talk to your doctor about whether you need to stop taking any medicines. Follow your doctor's instructions about stopping medicines. Drink plenty of fluids. If you have kidney, heart, or liver disease and have to limit fluids, talk with your doctor before you increase the amount of fluids you drink. When should you call for help? Call your doctor now or seek immediate medical care if: You have new or worse muscle pain. You have less urine than normal or no urine. You have new swelling in your arms or feet. You have blood in your urine Recommend followup with PCP in 1-2 weeks. Pending Studies at Discharge: No Stand-Alone Forms: My [facility] [employer], Smoking Cessation Medications and DC Order Prescriptions: New Paxlovid 300 mg (150 mg x 2)-100 mg tablets,dose pack See Rx Instructions .ROUTE .COMPLEX Qty: 30 0RF Rx Instructions: take TWO 150 mg tablets of nirmatrelvir with ONE 100 mg tablet of ritonavir twice daily for 5 days acetaminophen 325 mg Tablet 650 mg PO Q4H PRN (Reason: pain) Qty: 30 0RF Continued gabapentin 600 mg tablet 600 mg PO QID fluticasone propion-salmeterol [Wixela Inhub] 500-50 mcg/dose blister with device 1 ea INHALATION BID levothyroxine 112 mcg tablet 112 mcg PO DAILYBB dabigatran etexilate 150 mg capsule 150 mg PO BID cholecalciferol (vitamin D3) [Vitamin D3] 50 mcg (2,000 unit) Tablet 50 mcg PO DAILY metoprolol succinate 25 mg tablet extended release 24 hr 12.5 mg PO QAM fluticasone propionate 50 mcg/actuation spray,suspension 1 spray INTRANASAL BID PRN (Reason: Congestion) Discharge Orders: Discharge Order (Routine); Ordered 04/27/23 Ordered By: Darrel Mendes Admission Data Admit Date/Time: 04/25/23 18:58 Attending Provider: Darrel Mendes Admit Provider: Drake Del Cid Primary Care Provider: Candido Washington Other Providers: [facility],Home Health Other Interventions: Discharge Summary Assessment (RN) Last Done: 04/27/23 14:11 Coding Level of Care Code 14196 INP/OBS DISCH >30 MIN Diagnoses COVID-19 U07.1 Elevated troponin R77.8 Rhabdomyolysis M62.82 Fall W19.XXXA Acute hyponatremia E87.1 Neuropathy G62.9 Permanent atrial fibrillation I48.21
== END 2023-04-27 14:30 | disposition home health service (06) | DRG 557 ==
LOC: ED 12:19 → SUATTDRO 18:58 → 2N 18:58

== ENCOUNTER 2023-08-15 23:41 | Inpatient (IN) ==
[2023-08-15] MEDS ORDERED: SODIUM CHLORIDE 0.9% 500 ML IV SCH (23:45)
--- OUTSIDE RECORDS SUMMARY | 2023-08-15 23:47 | External Medical Summary | Summary of Care ---
Author Name Unknown Organization [facility] Address [address] [place] [address] Phone [phone] Care Team Providers Care Hospital Orderly Name Role Phone Drake Macias MD Primary Care Provider + Reason for Visit * Reason Onset Date Comments Pacemaker Clinic 08/04/2023 Disconnected mo nitor Encounter Details Date Type Department Care Team (Late st Contact Info) Description 08/04/2023 Telephone Cardiology, [facility] [address] [place] [address] [place], [facility] [address] [place] [address] Pacemaker Clinic (Disconnected monitor) Allergies Active Allergy Reactions Criticality Noted Date Comments Adhesive Tape 07/13/2017 Clarithromycin 08/22/2002 Biaxin hives Connelly-2 Inhibitors 03/12/2004 Hives documented as of this encounter (statuses as of 08/04/2023) Medications Medication Sig Dispensed Refills Start Date End Date Status SYNTHROID 112 MCG OR TABS 1 TABLET DAILY 0 09/30/2006 Active ALBUTEROL SULFATE 108 (90 BASE) MCG/ACT IN AERSIndications:As thma, severity to be determined 2 puffs every 4 hours prn coug, wheeze, chest tightness and sob, and prior to exertion 1 6 10/28/2007 Active ADVAIR DISKUS 500-50 MCG/DOSE IN MISCIndications:As thma, severity to be determined One puff twice daily 3 3 01/01/2009 Active PRADAXA 150 MG PO CAPS one capsule twice a day 0 Active VITAMIN D3 1000 UNITS PO CAPS None Entered 0 Active CO Q 10 10 MG PO CAPS None Entered 0 Active Diclofenac Sodium 1 % gel APPLY 1 TOPICALLY 4 TIMES A DAY 2 11/06/2016 Active Gabapentin (NEURONTIN) 600 MG Tablet TAKE 1 TABLET BY MOUTH THREE TIMES A DAY 270 Tab 1 05/24/2019 Active Additional Information Patient taking differently: 600 mg Oral QID(AM/NOON/PM/HS), (No instructions reported), Reported on 10/18/2019 Loratadine 10 MG Oral Capsule Take 10 mg by mouth daily. 0 Active Metoprolol Succinate ER 25 MG Oral Tablet Extended Release 24 Hour (toPROL XL)Indications:A-f ib (HCC),HTN, goal below 140/90 TAKE 1/2 TABLET BY MOUTH EVERY DAY 45 Tablet 3 12/01/2022 Active documented as of this encounter (statuses as of 08/04/2023) Active Problems Problem Noted Date Diagnosed Date Implantable loop recorder present 06/02/2022 A-fib 11/23/2014 Anticoagulation management encounter 12/11/2009 penitentiary current use of anticoagulant therapy 0 12/11/2009 Overview: ICD-10 update of inactive term HTN, GOAL BELOW 140/90 07/23/2009 Overview: Modified per HTN protocol #16. Esophageal reflux 02/29/2008 ADVANCE DIRECTIVE INFORMATION 08/03/2007 Overview: Yes, Patient instructed to provide copy of advance directive for provider to review and to be scanned into Electronic Medical Record Other allergic rhinitis 03/13/2003 Overview: ICD-10 update of inactive term Asthma with severity to be determined 08/22/2002 Overview: ICD-10 update of inactive term Unspecified hyperplasia of prostate 08/22/2002 NONTOX UNINODULAR GOITER 08/22/2002 Ankylosing spondylitis 08/22/2002 GENERAL OSTEOARTHROSIS 08/22/2002 documented as of this encounter (statuses as of 08/04/2023) Resolved Problems Problem Noted Date Diagnosed Date Resolved Date Atrial fibrillation 12/11/2009 01/02/20 11 HYPERTENSION NOS 08/22/2002 07/23/2009 Overview: Modified per HTN protocol #16. documented as of this encounter (statuses as of 08/04/2023) Immunizations Name Administration Dates Next Due Seasonal Influenza, Quadrivalent Hd (Fluzone Hd) 05/21/2022 Zoster Vaccine Recombinant (Shingrix) 06/01/2018 ,04/27/2018 documented as of this encounter Social History Tobacco Use Types Packs/Day Years Used Date Smoking Tobacco: Never Smokeless Tobacco: Never Comments:Father was heavy sm oker was also quit 20 years ago Alcohol Use Standard Drinks/Week Comments No 0 (1 standard drink = 0.6 oz pur e alcohol) Sex and Gender Information Value Date Recorded Sex Assigned at Not on file Gender Identity Not on file Sexual Orientation Not on file Job Start Date Occupation Industry Not on file Not on file Not on file documented as of this encounter Miscellaneous Notes * Telephone Encounter - Priyanka Mitchell LPN - 08/04/2023 10:10 AM EST My G message sent to patient regarding disconnected monitor. Monitor showing disconnected date of 06/30/2023 with a missed transmission 04/25/23. Next scheduled transmission is due 08/23/2023. documented in this encounter Plan of Treatment Health Maintenance Due Date Last Done Comments Depression Screening 1947 Albumin/Creatinine Ratio 1952 DTaP,Tdap,and Td Vaccines (1 - Tdap) 1954 TSH 02/05/2011 02/05/2010, 02/28, 02/14/1999, Additional history exists Pneumococcal Vaccine: 65+ Years (3 - PPSV23 or PCV20) 06/12/2015 06/12/2014, 02/14/1999 COVID-19 Vaccine (5 - 2022- season) 2023 01/16/2022, 06/10/2021, 10/31/2020, Additional history exists Influenza Vaccine (FLU shot) (#1) 2023 05/21/2022, 06/13/2020, 06/11/2019, Additional history exists Zoster Vaccines Completed 06/01/2018, 04/01, 01/04/2018, Additional history exists GARDASIL-HPV IMMUNIZATION SERIES Aged Out No longer eligible based on patient's age to complete this topic Hepatitis B Aged Out No longer eligi ble based on patient's age to complete this topic MENINGOCOCCAL (MENACTRA/MENVEO) Aged Out No longer eligible based on patient's age to complete this topic documented as of this encounter Medical Devices Not on filedocumented as of this encounter Care Teams Hospital Orderly Relationship Specialty Start Date End Date Drake Macias MD [address] [address] PCP - General 10/31/1998 documented as of this encounter
--- OUTSIDE RECORDS SUMMARY | 2023-08-15 23:47 | External Medical Summary | Summary of Care ---
Author Name Unknown Organization [facility] Address [address] [place] [address] Phone [phone] Care Team Providers Care Cuff Maker Name Role Phone Drake Macias MD Primary Care Provider + Reason for Visit * Reason Onset Date Comments Pacemaker Clinic 08/04/2023 Disconnected mo nitor Encounter Details Date Type Department Care Team (Late st Contact Info) Description 08/04/2023 Telephone Cardiology, [facility] [address] [place] [address] [place], Pacer Clinic [facility] [address] [place] [address] Pacemaker Clinic (Disconnected monitor) Allergies Active Allergy [...] 06/02/2022 A-fib 11/23/2014 Anticoagulation management encounter 12/11/2009 assisted current use of anticoagulant therapy 0 12/11/2009 [...] encounter Miscellaneous Notes * Telephone Encounter - Mirta Mayo RN - 08/04/2023 3:07 PM EST BJ, see patient MyG response. Any further action needed since seeing new sign builder and return remote monitoring device? * Telephone Encounter - Priyanka Mitchell LPN [...] or PCV20) 06/12/2015 06/12/2014, 02/14/1999 COVID-19 Vaccine ( season) 2023 01/16/2022, 06/10/2021, 10/31/2020, Additional history [...] filedocumented as of this encounter Care Teams Cuff Maker Relationship Specialty Start Date End Date Drake Macias MD [address] [address] PCP - General 10/31/1998 documented as of this encounter
--- OUTSIDE RECORDS SUMMARY | 2023-08-15 23:47 | External Medical Summary | Summary of Care ---
Author Name Unknown Organization [facility] Address [address] [place] [address] Phone [phone] Care Team Providers Care Cutter And Paster Press Clippings Name Role Phone Drake Macias MD Primary Care Provider + Reason for Visit * Reason Onset Date Comments Pacemaker Clinic 08/04/2023 Disconnected mo nitor Encounter Details Date Type Department Care Team (Late st Contact Info) Description 08/04/2023 Telephone Cardiology, [facility] [address] [place] [address] [place], Pacer Clinic [facility] [address] [place] [address] Pacemaker Clinic (Disconnected monitor) Allergies Active Allergy Reactions Criticality Noted Date Comments Adhesive Tape 07/13/2017 Clarithromycin 08/22/2002 Biaxin hives Connelly-2 Inhibitors 03/12/2004 Hives documented as of this encounter (statuses as of 08/05/2023) Medications Medication Sig Dispensed Refills Start Date [...] as of this encounter (statuses as of 08/05/2023) Active Problems Problem Noted Date Diagnosed Date Implantable loop recorder present 06/02/2022 A-fib 11/23/2014 Anticoagulation management encounter 12/11/2009 snf current use of anticoagulant therapy 0 12/11/2009 [...] as of this encounter (statuses as of 08/05/2023) Resolved Problems Problem Noted Date Diagnosed Date Resolved Date Atrial fibrillation 12/11/2009 01/02/20 11 HYPERTENSION NOS 08/22/2002 07/23/2009 Overview: Modified per HTN protocol #16. documented as of this encounter (statuses as of 08/05/2023) Immunizations Name Administration Dates Next Due Seasonal [...] encounter Miscellaneous Notes * Telephone Encounter - Hien Bernstein RN - 08/05/2023 11:56 AM EST Discontinued in [employer]. Sent a return linking machine operator. Changed to archive in [place]. Hien Bernstein RN * Telephone Encounter - Mirta Mayo RN - 08/04/2023 3:07 PM EST BJ, see patient MyG response. Any further action needed since seeing new world renowned chef and restaurant owner and return remote monitoring device? * Telephone [...] 06/12/2015 06/12/2014, 02/14/1999 COVID-19 Vaccine (5 - 2022-24 season) 2023 01/16/2022, 06/10/2021, 10/31/2020, Additional history [...] filedocumented as of this encounter Care Teams Cutter And Paster Press Clippings Relationship Specialty Start Date End Date Drake Macias MD [address] [address] PCP - General 10/31/1998 documented as of this encounter
--- OUTSIDE RECORDS SUMMARY | 2023-08-15 23:47 | External Medical Summary | Summary of Care ---
Author Name Unknown Organization [facility] Address [address] [place] [address] Phone [phone] Care Team Providers Care Agent Name Role Phone Drake Macias MD Primary Care Provider + Reason for Visit * Reason Onset Date Comments Pacemaker Clinic 08/04/2023 Disconnected mo nitor Encounter Details Date Type Department Care Team (Late st Contact Info) Description 08/04/2023 Telephone Cardiology, [facility] [address] [place] [address] [place], Pacer Clinic [facility] [address] [place] [address] Pacemaker Clinic (Disconnected monitor) Allergies Active Allergy [...] 06/02/2022 A-fib 11/23/2014 Anticoagulation management encounter 12/11/2009 custodial current use of anticoagulant therapy 0 12/11/2009 [...] filedocumented as of this encounter Care Teams Agent Relationship Specialty Start Date End Date Drake Macias MD [address] [address] PCP - General 10/31/1998 documented as of this encounter
--- OUTSIDE RECORDS SUMMARY | 2023-08-15 23:48 | External Medical Summary | Summary of Care ---
Author Name Unknown Organization [facility] Address [address] [place] [address] Phone [phone] Care Team Providers Care Permastone Mechanic Name Role Phone Drake Macias MD Primary Care Provider + Encounter Details Date Type Department Care Team Description 02/17/2023 Result Scan Unspecified Department Rebecca Griffin, DO [address] [place] [address] <No scans attached> Allergies Active Allergy Reactions Severity Noted Date Comments Adhesive Tape 07/13/2017 Clarithromycin 08/22/2002 Biaxin hives Connelly-2 Inhibitors 03/12/2004 Hives documented as of this encounter (statuses as of 02/17/2023) Medications Medication Sig Dispensed Refills Start Date [...] as of this encounter (statuses as of 02/17/2023) Active Problems Problem Noted Date Implantable loop recorder present 2021 A-fib 11/23/2014 Anticoagulation management encounter shelter current use of anticoagulant t herapy 12/11/2009 Overview: ICD-10 update of inactive term HTN, GOAL BELOW 140/90 07/23/2009 Overview: Modified per HTN protocol #16. Esophageal reflux 02/29/2008 ADVANCE DIRECTIVE INFORMATION 08/03/2007 Overview: Yes, Patient instructed to provide copy of advance directive for provider to review and to be scanned into Electronic Medical Record Other allergic rhinitis 03/13/2003 Overview: ICD-10 update of inactive term Asthma with severity to be determined Overview: ICD-10 update of inactive term Unspecified hyperplasia of prostate 08/01 NONTOX UNINODULAR GOITER 08/22/2002 Ankylosing spondylitis 08/22/2002 GENERAL OSTEOARTHROSIS 08/22/2002 documented as of this encounter (statuses as of 02/17/2023) Resolved Problems Problem Noted Date Resolved Date Atrial fibrillation 12/11/2009 01/01/2011 HYPERTENSION NOS 08/22/2002 07/23/2009 Overview: Modified per HTN protocol #16. documented as of this encounter (statuses as of 02/17/2023) Immunizations Name Administration Dates Next Due Seasonal [...] = 0.6 oz pur e alcohol) Sex Assigned at Date Recorded Not on file Job Start Date Occupation Industry Not on file Not on file Not on file documented as of this encounter Plan of Treatment Upcoming Encounters Date Type Specialty Care Team Description 03/31/2023 Office Visit Cardiology Jose Cruz Urrutia MD [address] [place] [address] 07/02/2023 Cardiac Studies [facility] [address] [place] [address] Health Maintenance Due Date Last Done Comments Pneumococcal Vaccine: 65+ Years (1 - PCV) 1941 Depression Screening, Annual for Pts 12 and Over 1947 Albumin/Creatinine Ratio 1952 DTaP,Tdap,and Td Vaccines (1 - Tdap) 1953 TSH 02/05/2011 02/05/2010, 02/28, 02/14/1999, Additional history exists COVID-19 Vaccine (5 - Pfizer series) 03/13/2022 01/16/2022, 06/10/2021, 10/31/2020, Additional history exists Zoster Vaccines Completed 06/01/2018, 04/01, 01/04/2018, Additional history exists Influenza Vaccine (FLU shot) Completed , 06/13/2020, 06/11/2019, Additional history exists GARDASIL-HPV IMMUNIZATION SERIES Aged [...] Not on filedocumented as of this encounter Procedures Procedure Name Priority Date/Time Associated Diagnosis Comments CARDIOLOGY SCANNED RESULT 02/17/2023 documented in this encounter Results * CARDIOLOGY SCANNED RESULT (02/17/2023) 02/17/2023 Rebecca Griffin DO OTHER documented in this encounter Care Teams Permastone Mechanic Relationship Specialty Start Date End Date Drake Macias MD [address] [facility] [address] [place] [address] PCP - General 10/31/1998 documented as of this encounter
--- OUTSIDE RECORDS SUMMARY | 2023-08-15 23:48 | External Medical Summary | Summary of Care ---
Author Name Unknown Organization [facility] Address [address] [place] [address] Phone [phone] Care Team Providers Care Hotel Night Auditor Name Role Phone Drake Macias MD Primary Care Provider + Reason for Visit * Reason Onset Date Comments Pacemaker Clinic 03/19/2023 Loop recorder s howing 3 second pause and atrial fib Encounter Details Date Type Department Care Team Description 03/19/2023 Telephone Cardiology, [facility] [address] [facility] [place] [address] Rebecca Griffin, DO [address] [facility] [place] [address] Pacemaker Clinic (Loop recorder showing 3 ... Allergies Active Allergy Reactions Severity Noted Date Comments Adhesive Tape 07/13/2017 Clarithromycin 08/22/2002 Biaxin hives Connelly-2 Inhibitors 03/12/2004 Hives documented as of this encounter (statuses as of 04/15/2023) Medications Medication Sig Dispensed Refills Start Date [...] as of this encounter (statuses as of 04/15/2023) Active Problems Problem Noted Date Implantable loop recorder present 2021 A-fib 11/23/2014 Anticoagulation management encounter penitentiary current use of anticoagulant t herapy 12/11/2009 [...] as of this encounter (statuses as of 04/15/2023) Resolved Problems Problem Noted Date Resolved Date Atrial fibrillation 12/11/2009 01/01/2011 HYPERTENSION NOS 08/22/2002 07/23/2009 Overview: Modified per HTN protocol #16. documented as of this encounter (statuses as of 04/15/2023) Immunizations Name Administration Dates Next Due Seasonal [...] encounter Miscellaneous Notes * Telephone Encounter - KOFI Fletcher - 03/19/2023 3:05 PM EDT Report received from Loop recorder that patient had 3 sec pause with atrial fib on 03/17/23 at 00:00. Dr. Griffin notified and report sent in [place] as red alert. documented in this encounter Plan of Treatment Upcoming Encounters Date Type Specialty Care Team Description 07/02/2023 Cardiac Studies Cardiology Ama, Pacer Clinic [facility] [address] [place] [address] 07/20/2023 Office Visit Cardiology Bogdan Cristobal DO [address] [place] [address] Health Maintenance Due Date Last Done Comments Pneumococcal Vaccine: 65+ Years (1 - PCV) 1941 Depression Screening, Annual for Pts 12 and Over 1947 Albumin/Creatinine Ratio 1952 DTaP,Tdap,and Td Vaccines (1 - Tdap) 1953 TSH 02/05/2011 02/05/2010, 02/28, 02/14/1999, Additional history exists COVID-19 Vaccine (5 - Pfizer series) 03/13/2022 01/16/2022, 06/10/2021, 10/31/2020, Additional history exists Influenza [...] filedocumented as of this encounter Care Teams Hotel Night Auditor Relationship Specialty Start Date End Date Drake Macias MD [address] [place] [address] PCP - General 10/31/1998 documented as of this encounter
--- OUTSIDE RECORDS SUMMARY | 2023-08-15 23:48 | External Medical Summary | Summary of Care ---
Author Name Unknown Organization [facility] Address [address] [place] [address] Phone [phone] Care Team Providers Care Health Services Coordinator Name Role Phone Drake Macias MD Primary Care Provider + Reason for Visit * Reason Onset Date Comments Pacemaker Clinic 02/12/2023 Loop recorder c heck showinga 3 second pause and atrial fib Encounter Details Date Type Department Care Team Description 02/12/2023 Telephone Cardiology, [facility] [address] [facility] [place] [address] Rebecca Griffin, DO [address] [facility] [place] [address] Pacemaker Clinic (Loop recorder check show... Allergies Active Allergy Reactions Severity Noted Date [...] present 2021 A-fib 11/23/2014 Anticoagulation management encounter halfway current use of anticoagulant t herapy 12/11/2009 [...] * Telephone Encounter - KOFI Fletcher - 02/12/2023 11:46 AM EDT I called the patient to see if he recalled having any symptoms with a 3 second pause episode on 02/10/23 at 9:55 PM. Patient states that he recalls no symptoms associated with this event. [place] [facility] documented in this encounter Plan of Treatment Upcoming Encounters Date Type Specialty Care Team Description 07/02/2023 Cardiac Studies Cardiology [facility] [address] [place] [address] 07/20/2023 Office Visit Cardiology Bogdan Cristobal DO [address] [place] [address] Health Maintenance Due Date Last Done Comments [...] filedocumented as of this encounter Care Teams Health Services Coordinator Relationship Specialty Start Date End Date Drake Macias MD [address] [address] PCP - General 10/31/1998 documented as of this encounter
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
--- OUTSIDE RECORDS SUMMARY | 2023-08-15 23:48 | External Medical Summary | Continuity of Care Document ---
Author Name Unknown Organization [address] [place] [address] [phone] [id number] Date[facility]s): 06/19/23 - 06/19/23 [facility] 1850 [facility] 207 [facility] 1850 [facility], [address] [address] [place] [phone] Discharge Disposition: Home or Self Care Attending Physician: MD Washington Christopher Referring Physician: MD Washington Christopher Allergies, Adverse Reactions, Alerts Substance Reaction Severity [...] of breath Nasal congestion Active 1newsprint 2smoke Immunizations Given and Recorded Vaccine Date Status Refusal Reason influenza virus vaccine, inactivated 06/18/23 Give n influenza virus vaccine, inactivated 06/24/21 Give n [...] virus vaccine, inactivated 06/02/12 Give n SARS-CoV-2 mRNA (Pfizer 12+) bivalent 1 06/18/22 R ecorded SARS-CoV-2 mRNA ([id number]) 2 01/16/22 Recorded SARS-CoV-2 (COVID-19) mRNA BNT-162b2 vax 3 06/10/21 Recorded SARS-CoV-2 (COVID-19) mRNA BNT-162b2 vax 4 10/31/20 Recorded SARS-CoV-2 (COVID-19) mRNA BNT-162b2 vax 5 10/10/20 Recorded tetanus toxoids-diphtheria, Td (Adult) 06/10/18 Gi rowdy zoster vaccine, inactivated 6 06/01/18 Recorded zoster vaccine, inactivated 04/27/18 Recorded zoster vaccine, inactivated 01/04/18 Recorded pneumococcal 13-valent vaccine 06/12/14 Given tetanus/diphtheria/pertuss, acel (Tdap) 7 06/20/11 Given zoster vaccine live 10/11/07 Recorded pneumococcal 23-valent vaccine 02/14/99 Recorded 1Result Comment: 2023-06-18: Historical information-source unspecified 2Result Comment: 2022-03-05: Historical information-source unspecified 3Result Comment: 2022-03-05: Historical information-source unspecified 4Result Comment: 2021-02-13: Historical information-source unspecified 5Result Comment: [facility] 6Result Comment: 2021-02-13: Historical information-source unspecified 7Result Comment: [06/20/2011] Confirmed by George Gaston Medications cetirizine Start: 05/18/19 11:12:00 EDT, 10 mg =, PO, Daily Start Date: 05/18/19 Status: Ordered Co-Q10 100 mg oral capsule Start: 12/17/11 9:55:00, 1 cap, PO, Daily Start Date: 12/17/11 Status: Suspended diclofenac 1% topical gel Start: 06/22/18 13:32:26 EDT, See Instructions, Disp# 100, Refills: 4, APPLY 1 TOPICALLY 4 TIMES A DAY, Pharmacy: [facility]/pharmacy #[id number] Start Date: 06/22/18 Status: Ordered fluticasone 50 mcg/inh nasal spray Start: 10/17/22 15:11:00 EST, See Instructions, Disp# 48 mL, Refills: 0, SPRAY 1 SPRAY INTO EACH NOSTRIL TWICE A DAY, Pharmacy: [facility] STORE [id number] Start Date: 10/17/22 Status: Ordered gabapentin 600 mg oral tablet Start: 11/06/22 13:21:00 EST, 600 mg =, PO, qid, Disp# 360 each, Refills: 4, Pharmacy: [facility]/pharmacy#[id number] Start Date: 11/06/22 Stop Date: 01/30/24 Status: Ordered levothyroxine 112 mcg (0.112 mg) oral tablet Start: 11/06/22 13:21:00 EST, See Instructions, Disp# 90 tab, Refills: 4, TAKE 1 TABLET BY MOUTH EVERY DAY, Pharmacy: [facility]/pharmacy #[id number] Start Date: 11/06/22 Status: Ordered Metamucil [place] Coarse Milled Original Texture Start: 02/04/17 10:17:00, 3.4 g =, PO, bid, Disp# 1,254 g Start Date: 02/04/17 Status: Ordered Metoprolol Succinate ER 25 mg oral tablet, extended release Start: 06/10/18 13:56:00 EDT, 0.5 tab, PO, Daily, Disp# 45 tab, Refills: 4, other Start Date: 06/10/18 Status: Ordered AMANDA [facility] Start: 10/03/15 19:09:39, See Instructions, Disp# 1, Refills: 2, USE WITH ALBUTEROL INHALER, [id number], USE WITH ALBUTEROL INHALER Start Date: 10/03/15 Status: Ordered Pradaxa 150 mg oral capsule Start: 03/19/23 14:52:00 EDT, See Instructions, Disp# 180 cap, Refills: 1, TAKE 1 CAPSULE BY MOUTH TWICE A DAY, Pharmacy: [facility] STORE [id number] Start Date: 03/19/23 Status: Ordered ProAir HFA 90 mcg/inh inhalation aerosol Start: 12/06/19 10:54:00 EDT, 2 puff, inhaled, qid, Disp# 3 each, Refills: 3, use with spacer chamber, PRN: as needed for wheezing, Pharmacy: [facility]/pharmacy #[id number] Start Date: 12/06/19 Status: Ordered Procrit [...] PUFF BY MOUTH TWICE A DAY, Pharmacy: [facility] Start Date: 12/23/22 Status: Ordered Problem List Condition Confirmation Course Effective Dates Status H ealth Status Informant ALLERGIC RHINITIS DUE TO OTHER ALLERGEN Confirmed Active Anticoagulated by anticoagulation treatment Confirmed Active Xerosis cutis Confirmed Active ASTHMA, UNSPECIFIED Confirmed Active ATRIAL FIBRILLATION Confirmed Active Multiple nevi Confirmed Active Changing skin lesion Confirmed Active Chronic pain syndrome Confirmed Active DEPRESSION, NOS 1 Confirmed Active DIVERTICULOSIS OF COLON (WITHOUT MENTION OF HEMORRHAGE) Confirmed Active EOSINOPHILIA Confirmed Active Essential tremor Confirmed Active Family history of sleep apnea 2 Confirmed Active GERD Confirmed Active H/O Malignant [...] Active Iron deficiency 6 Confirmed 05/09/20 Active Iron deficiency anemia Confirmed Active Chronic right-sided lumbar radiculopathy 7 Confirmed Active MGUS (monoclonal gammopathy of unknown significance) Confirmed Active Actinic keratoses Confirmed Active Myelodysplastic syndrome Confirmed Active NEOPLASM OF UNCERTAIN BEHAVIOR OF SKIN Confirmed Active NONTOXIC NODULAR GOITER Confirmed Active Notalgia paresthetica Confirmed Active OSTEOARTHROSIS, UNSPECIFIED WHETHER GENERALIZED OR LOCALIZED, INVOLVING UNSPECIFIED SITE Confirmed Active OTHER CHRONIC ALLERGIC CONJUNCTIVITIS Confirmed Active PERSONAL HISTORY OF MALIGNANT NEOPLASM OF PROSTATE Confirmed 06/20/96 Active Pulmonary artery hypertension 8 Confirmed Active Right atrial dilatation 9 Confirmed Active Seborrheic keratoses Confirmed Active Seborrheic keratoses Confirmed Active Left shoulder pain Confirmed Active SPINAL STENOSIS OF LUMBAR REGION Confirmed Active Stenosis of intervertebral foramen Confirmed Active TINNITUS Confirmed Active Tremor Confirmed Active Tricuspid regurgitation 10 Confirmed Active Unilateral recurrent inguinal hernia 11 Confirmed Active Ambulatory dysfunction Confirmed Active 1dysthymia 2Martha 3left elbow posteriorly [address],1970- [facility] 6based on low nai stores on bone marrow biopsy 7L4 8moderate 9severe 10moderate 11left: 1983 Procedures Procedure Date Related Diagnosis Body Site [...] or se condary; younger than age 12 1943 Completed Bone marrow biopsy Comple kalpesh melanoma [...] more surveillance needed per Dr. Ching 11diverticulosis Social History Social History Type Response Tobacco Former smoker, Cigar ettes, 0.2 per day. Started age 17 Years. Stopped age 21 Years. 1 Smoking Status Never smoked cigaret aleksandra Sex Male 1grew up with heavy second hand smoke Patient Care team information Care Team Personnel Name: DO Duncan Kristen M Position: Physician - Family Med Member Role: Lifetime Relationship Address: Address: [address] [facility] [address] [place] [address] [place] Name: MD Chaparrita, Patrick Villegas Position: Physician - Sports Medicine [place] Member Role: Lifetime Relationship Address: Address: [address] [facility] [address] [place] [address] Care Team Related Persons Name: LINO MCKEON Address: [place] Address: home [address] [place], [place] [id number]
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
--- OUTSIDE RECORDS SUMMARY | 2023-08-15 23:48 | External Medical Summary | Summary of Care ---
Author Name Unknown Organization [facility] Address [address] [place] [address] Phone [phone] Care Team Providers Care Technical Training Manager Name Role Phone Drake Macias MD Primary Care Provider + Encounter Details Date Type Department Care Team (Late st Contact Info) Description 07/03/2023 Result Scan Unspecified Department Rebecca Griffin, DO [address] [place] [address] <No scans attached> Allergies Active Allergy Reactions Criticality Noted Date Comments Adhesive Tape 07/13/2017 Clarithromycin 08/22/2002 Biaxin hives Connelly-2 Inhibitors 03/12/2004 Hives documented as of this encounter (statuses as of 07/03/2023) Medications Medication Sig Dispensed Refills Start Date [...] as of this encounter (statuses as of 07/03/2023) Active Problems Problem Noted Date Diagnosed Date Implantable loop recorder present 06/02/2022 A-fib 11/23/2014 Anticoagulation management encounter 12/11/2009 intermediate current use of anticoagulant therapy 0 12/11/2009 [...] as of this encounter (statuses as of 07/03/2023) Resolved Problems Problem Noted Date Diagnosed Date Resolved Date Atrial fibrillation 12/11/2009 01/02/20 11 HYPERTENSION NOS 08/22/2002 07/23/2009 Overview: Modified per HTN protocol #16. documented as of this encounter (statuses as of 07/03/2023) Immunizations Name Administration Dates Next Due Seasonal [...] Plan of Treatment Upcoming Encounters Date Type Department Care Team (Late st Contact Info) Description 07/22/2023 11:00 AM EST Office Visit Otolaryngology [facility] [address] [place] [address] David Hernandez PA-C [address] [place] [address] Health Maintenance Due Date Last Done Comments Pneumococcal Vaccine: 65+ Years (1 - PCV) 1940 Depression Screening 1946 Albumin/Creatinine Ratio 1952 DTaP,Tdap,and Td Vaccines (1 - Tdap) 1953 TSH 02/05/2011 02/05/2010, 02/28, 02/14/1999, Additional history exists COVID-19 Vaccine ( - 2022- season) 2023 01/16/2022, 06/10/2021, 10/31/2020, [...] Date/Time Associated Diagnosis Comments CARDIOLOGY SCANNED RESULT 07/03/2023 documented in this encounter Results * CARDIOLOGY SCANNED RESULT (07/03/2023) 07/03/2023 Rebecca Griffin DO OTHER documented in this encounter Care Teams Technical Training Manager Relationship Specialty Start Date End Date Drake Macias MD [address] [address] PCP - General 10/31/1998 documented as of this encounter
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
--- OUTSIDE RECORDS SUMMARY | 2023-08-15 23:48 | External Medical Summary | Summary of Care ---
Author Name Unknown Organization [facility] Address [address] [place] [address] Phone [phone] Care Team Providers Care Plugging Machine Operator Name Role Phone Drake Macias MD Primary Care Provider + Encounter Details Date Type Department Care Team Description 03/19/2023 Result Scan Unspecified Department Rebecca Griffin, DO [address] [place] [address] <No scans attached> Allergies Active Allergy Reactions Severity Noted Date Comments Adhesive Tape 07/13/2017 Clarithromycin 08/22/2002 Biaxin hives Connelly-2 Inhibitors 03/12/2004 Hives documented as of this encounter (statuses as of 03/19/2023) Medications Medication Sig Dispensed Refills Start Date [...] as of this encounter (statuses as of 03/19/2023) Active Problems Problem Noted Date Implantable loop recorder present 2021 A-fib 11/23/2014 Anticoagulation management encounter detention current use of anticoagulant t herapy 12/11/2009 [...] as of this encounter (statuses as of 03/19/2023) Resolved Problems Problem Noted Date Resolved Date Atrial fibrillation 12/11/2009 01/01/2011 HYPERTENSION NOS 08/22/2002 07/23/2009 Overview: Modified per HTN protocol #16. documented as of this encounter (statuses as of 03/19/2023) Immunizations Name Administration Dates Next Due Seasonal [...] Cruz Urrutia MD [address] [place] [address] 07/02/2023 [facility] [address] [address] Health Maintenance Due Date Last Done Comments [...] Date/Time Associated Diagnosis Comments CARDIOLOGY SCANNED RESULT 03/19/2023 documented in this encounter Results * CARDIOLOGY SCANNED RESULT (03/19/2023) 03/19/2023 Rebecca Griffin DO OTHER documented in this encounter Care Teams Plugging Machine Operator Relationship Specialty Start Date End Date Drake Macias MD [address] [facility] [address] [place] [address] PCP - General 10/31/1998 documented as of this encounter
--- NOTE | 2023-08-15 23:58 | Emergency Department Note ---
Impression & Plan Chest pain, Non-ST elevation [place] (NSTEMI), Atrial fibrillation, chronic, Anemia ED Provider Note ED Provider Note NAME: JOESPH NAVARRETE AGE:88 SEX: Male : 1935 ARRIVES VIA: EMS INFORMANT: Patient ED PROVIDER(s): Nettie Guaman DO CHIEF COMPLAINT: Chest pain HPI: This is an 88-year-old male presents emerged part via EMS after an episode of chest pain that began this evening while he was watching TV. Patient states he was already laying down at the time when he began developing left-sided chest pain. He denies any radiation of pain, denies any accompanying dizziness, shortness of breath, or nausea. He states no prior similar episodes. Patient does live with family who called 911. EMS gave the patient 324 mg of aspirin and 3 doses of nitro with resolution of his symptoms. Patient states he does see Dr. Ruiz and reports he did recently wear a Holter monitor although he does not know why. He does have a history of atrial fibrillation. He denies any recent illness, fevers or chills. PAST MEDICAL HISTORY:See Below PAST SURGICAL HISTORY:See Below FAMILY HISTORY:See Below SOCIAL HISTORY:See Below HOME MEDICATIONS:See Below ALLERGIES:See Below VITALS:See Below PHYSICAL EXAMINATION: GENERAL: alert, well appearing, well nourished, no distress, non-toxic EYE EXAM: normal conjunctiva, PERRL and EOM's grossly intact OROPHARYNX: no exudate, no erythema, lips, buccal mucosa, and tongue normal and mucous membranes are moist NECK: supple, no nuchal rigidity, no adenopathy, non-tender LUNGS: Clear to auscultation. Normal chest wall mechanics, no w/r/r HEART: no murmurs, S1 normal and S2 normal, no reproducible pain with palpation ABDOMEN: abdomen soft, non-tender, normo-active bowel sounds, no masses, no rebound or guarding. BACK: Back is symmetrical on inspection and there is no deformity, no midline tenderness, no CVA tenderness. SKIN: no rashes, petechiae, orbruising UPPER EXTREMITIES: upper extremities are grossly normal. FROM, nml pulses b/l. LOWER EXTREMITIES: No pitting edema. FROM, nml pulses b/l. NEURO EXAM: Normal sensorium, cranial nerves II-XII grossly intact, normal speech, no facial droop,nogross weakness of arms, no gross weakness of legs. Gross sensation intact. No ataxia. Vital Signs: reviewed and remarkable Differential Diagnosis: acute coronary syndrome, pericarditis, pulmonary embolus, aortic dissection, pneumonia, pneumothorax, musculoskeletal pain, shingles, GERD, GI bleed, as well as others were considered MEDICAL DECISION MAKING: This is an 88-year-old male presents emergency department via EMS after an episode of chest pain that began while at rest at home. Patient's symptoms had resolved by arrival here after EMS provided aspirin and nitro x 3. Labs drawn and sent, IV established, EKG and chest were performed bedside interpreted by me and patient monitored on telemetry. Patient had no recurrent symptoms were present in the emergency room. The first troponin was negative and serial EKGs were performed without any acutely concerning changes. I did speak with son who presented to bedside additionally and he stated when patient first had pain he seemed slightly confused but they thought it was because of time of day and acute anxiety regarding pain. On arrival here patient was oriented to person, place, time, and event. CT of the head was performed and was negative. Patient does follow with cardiology. Patient observed here and a repeat troponin was markedly more elevated. He had no recurrent pain. He was hemodynamically stable throughout. Due to concern for NSTEMI and need for additional evaluation, the case was discussed with the [facility] hospitalist team. They were in agreement with plan for heparin at this time. Patient had previously been removed from anticoagulation for his a.fib due to concern for recurrent falls. At this time given concern for ACS I feel the benefits outweigh the risk. The [facility] hospitalist also felt patient should be placed on heparin as we did discuss this. Patient was also noted to be anemic although this appears stable compared to prior and was known to the patient. Consultation(s): 0350: Discussed with Dr. Perez, [facility] hospitalist team, for additional evaluation and management. ER Treatment Provided: See below 0212: Discussed with son, now at bedside. Son states he had a loop recorder which was deactivated. No other recent illness. Patient lives alone and he and other family members check in on him daily. Diagnostics Interpreted By Me: -ECG: Atrial fibrillation at 63, left axis deviation, normal intervals, nonspecific ST/T wave changes -Cardiac Monitoring: An order was placed for continuous cardiac monitoring. The monitor shows a rate of 70 with a.fib rhythm. -Laboratory studies: As stated above and show below. -Imaging studies: X-ray Chest: A single view study of the chest was reviewed and was negative for cardiomegaly, focal infiltrate, effusion, pulmonary edema, or wide mediastinum. Triage Nursing Note Reviewed Prior/Outside Records Reviewed Critical care: Critical care of 43 min performed to assess and manage high likelihood of life- threatening ACS, involving labs and imaging performed with assessment to evaluate chest pain and elevated troponin diagnosis with frequent reassessment. This time includes bedside time, treatment discussions with patient/family/consultants, documentation time and excludes procedure time. 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 Beliefs That Will Affect Care: Cheondoism Current Living Situation: Alone Feels Safe at Home: Yes Assistive Devices: Cane and Walker Allergies Allergies Allergy/AdvReac Type Severity Reaction Status Date / Time clarithromycin Allergy Severe HIVES Verified 08/16/23 00:32 Home Meds Home Medications Medication Instructions Recorded Confirmed cholecalciferol (vitamin D3) 50 50 mcg PO DAILY 04/25/23 08/16/23 mcg (2,000 unit) tablet (Vitamin D3) dabigatran etexilate 150 mg capsule 150 mg PO BID 04/25/23 08/16/23 fluticasone 500 mcg-salmeterol 50 1 ea inhalation BID 04/25/23 08/16/23 mcg/dose blistr powdr for inhalation (Wixela Inhub) fluticasone propionate 50 1 spray intranasal BID PRN 04/25/23 08/16/23 mcg/actuation nasal Congestion spray,suspension gabapentin 600 mg tablet 600 mg PO QID 04/25/23 08/16/23 levothyroxine 112 mcg tablet 112 mcg PO DAILYBB 04/25/23 08/16/23 metoprolol succinate 25 mg 12.5 mg PO QAM 04/25/23 08/16/23 tablet,extended release 24 hr Previous Rx's Medication Instructions Recorded acetaminophen 325 mg tablet 650 mg (2 x 325 mg) PO Q4H PRN 04/27/23 pain #30 tabs Results & Data (ED) Vital Signs Vital Signs - 24 hr 08/15/23 23:34 08/15/23 23:55 08/16/23 00:07 Temperature 36.5 C Temperature Source Oral Pulse Rate 75 66 Pulse Rate [Apical] Pulse Rhythm Regular Pulse Rhythm [Apical] Pulse Strength Normal Respiratory Rate 18 Respiratory Effort / Characteristics Non-Labored Spontaneous Respiratory Depth Normal Respiratory Pattern Regular Blood Pressure 116/64 Blood Pressure [Right Arm] Blood Pressure Mean 81 Blood Pressure Mean [Right Arm] Blood Pressure Position Lying Blood Pressure Position [Right Arm] Pulse Oximetry 93 94 Oxygen Delivery Method Room Air Room Air Sepsis Recent Fever Within 48 Hours No Sepsis New/Unexplained Change in Mental Status N/A Sepsis Action Taken by Nursing No Action Required 08/16/23 00:15 08/16/23 01:00 08/16/23 02:00 Temperature Temperature Source Pulse Rate Pulse Rate [Apical] 62 59 L 56 L Pulse Rhythm Pulse Rhythm [Apical] Irregular Irregular Pulse Strength Respiratory Rate 15 14 15 Respiratory Effort / Characteristics Non-Labored Spontaneous Non-Labored Spontaneous Non-Labored Spontaneous Respiratory Depth Normal Normal Normal Respiratory Pattern Regular Regular Regular Blood Pressure Blood Pressure [Right Arm] 119/70 106/64 110/66 Blood Pressure Mean Blood Pressure Mean [Right Arm] 86 78 80 Blood Pressure Position Blood Pressure Position [Right Arm] Lying Lying Pulse Oximetry 95 97 97 Oxygen Delivery Method Room Air Room Air Room Air Sepsis Recent Fever Within 48 Hours Sepsis New/Unexplained Change in Mental Status Sepsis Action Taken by Nursing 08/16/23 03:00 08/16/23 04:00 08/16/23 04:02 Temperature Temperature Source Pulse Rate 65 60 Pulse Rate [Apical] 65 Pulse Rhythm Pulse Rhythm [Apical] Pulse Strength Respiratory Rate 16 18 Respiratory Effort / Characteristics Non-Labored Spontaneous Respiratory Depth Normal Respiratory Pattern Regular Blood Pressure 124/77 Blood Pressure [Right Arm] 113/63 Blood Pressure Mean 92 Blood Pressure Mean [Right Arm] 79 Blood Pressure Position Blood Pressure Position [Right Arm] Pulse Oximetry 97 98 Oxygen Delivery Method Room Air Sepsis Recent Fever Within 48 Hours Sepsis New/Unexplained Change in Mental Status Sepsis Action Taken by Nursing Laboratory Data 08/15/23 23:45 08/15/23 23:45 Lab Results 08/15/23 08/16/23 Range/Units 23:45 02:44 WBC 6.02 (4.8-10.8) K/ul RBC 3.58 L (4.70-6.10) M/uL Hgb 9.5 L (14.0-18.0) g/dl Hct 30.3 L (42.0-52.0) % MCV 84.6 (80.0-100.0) fL MCH 26.5 (25.0-34.0) pg MCHC 31.4 L (32.0-36.0) g/dL RDW Std Deviation 82.4 H (36.4-46.3) fL RDW Coeff of [place] 27.3 H (11.5-14.5) % Plt Count 400 (130-400) K/uL MPV 11.6 (9.4-12.4) fL Immature Gran % (Auto) 0.7 % Neut % (Auto) 49.4 % Lymph % (Auto) 29.2 % [place] % (Auto) 14.6 % Eos % (Auto) 5.8 % Baso % (Auto) 0.3 % Neut # (Auto) 2.97 (1.40-6.50) K/uL Lymph # (Auto) 1.76 (1.20-3.40) K/uL [place] # (Auto) 0.88 H (0.11-0.59) K/uL Eos # (Auto) 0.35 (0.00-0.50) K/uL Baso # (Auto) 0.02 (0.00-0.20) K/uL Immature Gran # (Auto) 0.04 (0.01-0.20) K/uL Hypochromasia Present Anisocytosis Present Ovalocytes 1+ D-Dimer 780 H* (0-500) ug/L FEU Sodium 136 (136-145) mmol/L Potassium 4.2 (3.5-5.1) mmol/L Chloride 102 (98-107) mmol/L Carbon Dioxide 29 (21-32) mmol/L Anion Gap 5 (3-11) BUN 29 H (6-23) mg/dl Creatinine 1.32 (0.6-1.4) mg/dl Est Cr Clr Drug Dosing 39.7 ml/min Est GFR ( Amer) 55.0 ml/min Est GFR (Non-Af Amer) 47.5 ml/min BUN/Creatinine Ratio 22.0 H (10-20) Glucose 120 H (70-99(Fasting)) mg/dl Calcium 9.9 (8.6-10.3) mg/dl Magnesium 2.1 (1.7-2.4) mg/dl Total Bilirubin 0.8 (0.2-1.0) mg/dl AST 20 (13-39) U/L ALT 17 (7-52) U/L Alkaline Phosphatase 79 (34-104) U/L Troponin I High Sens 11.6 226.8 H* D (0-20) pg/ml B-Natriuretic Peptide 172 H (0-100) pg/ml Total Protein 7.4 (6.0-8.3) gm/dl Albumin 3.8 (3.4-5.0) gm/dl Globulin 3.6 (2.5-4.0) gm/dl Albumin/Globulin Ratio 1.1 (0.9-2) Lipase 29 (11-82) U/L TSH 1.100 (0.300-4.500) uIu/ml Administered Medications Heparin Sodium/Dextrose (Heparin Sodium/Dextrose) 25,000 units in 500 mls @ 18 mls/hr IV .Q24H [facility]; Protocol Stop: 09/15/23 04:14 Last Admin: 08/16/23 04:24 Dose: 900 units/hr, 18 mls/hr Documented By: GANGA Co-signed By: ANGLE Discontinued Medications Atorvastatin Calcium (Atorvastatin 40 Mg Tab) 80 mg PO ONCE STA Stop: 08/16/23 04:28 Last Admin: 08/16/23 04:56 Dose: 80 mg Documented By: GANGA Heparin Sodium (Porcine) (Heparin Sod (Porcine) 1000 Unit/Ml) 4,000 units IV NOW ONE Stop: 08/16/23 04:16 Last Admin: 08/16/23 04:23 Dose: 4,000 units Documented By: GANGA Co-signed By: ANGLE Sodium Chloride (Nss) 500 mls @ 80 mls/hr IV .Q6H15M EVE Stop: 09/14/23 23:44 Last Infusion: 08/16/23 05:28 Dose: Infused Documented By: Admin: 08/16/23 00:12 Dose: 80 mls/hr Documented By: KMO Imaging Data Radiologist's Impression: Head CT 08/16/23 00:24 Exam(s): CT HEAD Without Contrast EXAM: CT Head Without Intravenous Contrast CLINICAL HISTORY: Reason for exam: confusion. TECHNIQUE: Axial computed tomography images of the head/brain without intravenous contrast. CTDI is 36.05 mGy and DLP is 624.41 mGy-cm. Automated exposure control was utilized for the study. A dose lowering technique was utilized adhering to the principles of ALARA. COMPARISON: CT Head dated 04/25/23 FINDINGS: Brain: Volume loss with prominent ventricles and sulci. Periventricular and subcortical white matter hypoattenuation likely reflects chronic small vessel disease. No hemorrhage. Ventricles: See above. Bones/joints: Unremarkable. No acute fracture. Soft tissues: Small metallic density in the right frontal scalp, stable. Sinuses: Unremarkable as visualized. No acute sinusitis. Mastoid air cells: Unremarkable as visualized. No mastoid effusion. IMPRESSION: No acute findings in the head/brain. Electronically signed by: Justin Brziuela M.D. 08/16/23 03:32 AM Discharge Plan Visit Data Chief Complaint: Cardiac Assessment Stated Complaint: CHEST PRESSURE, SOB ED Provider: Nettie Guaman Discharge Problem: Chest pain, Non-ST elevation [place] (NSTEMI), Atrial fibrillation, chronic, Anemia Patient Disposition: Admitted As Inpatient Discharge Instructions Interventions: ED Discharge Assessment Last Done: 08/16/23 05:05
[2023-08-16 00:13] LABS: Hematocrit (blood only) 30.3 % (42.0-52.0); Hemoglobin 9.5 g/dl (14.0-18.0); Mean Corpuscular Hemoglobin 26.5 pg (25.0-34.0); Mean Corpuscular Hgb Conc 31.4 g/dL (32.0-36.0); Mean Corpuscular Volume 84.6 fL (80.0-100.0); Mean Platelet Volume 11.6 fL (9.4-12.4); Platelet Count 400 K/uL (130-400); RDW Coefficient of Variation 27.3 % (11.5-14.5); RDW Standard Deviation 82.4 fL (36.4-46.3); Red Blood Count 3.58 M/uL (4.70-6.10); White Blood Count 6.02 K/ul (4.8-10.8)
[2023-08-16 00:24] LABS: Albumin Globulin Ratio 1.1 (0.9-2); Albumin Level 3.8 gm/dl (3.4-5.0); Bilirubin,Total 0.8 mg/dl (0.2-1.0); Calcium 9.9 mg/dl (8.6-10.3); Creatinine Clr Calc Pharmacy 39.7 ml/min; Est GFR (Non-African American) 47.5 ml/min; Globulin 3.6 gm/dl (2.5-4.0); Magnesium 2.1 mg/dl (1.7-2.4); Potassium 4.2 mmol/L (3.5-5.1); Total Protein 7.4 gm/dl (6.0-8.3)
[2023-08-16 00:30] LABS: Troponin I High Sensitivity 11.6 pg/ml (0-20)
[2023-08-16 00:40] LABS: Thyroid Stimulating Hormone 1.1 uIu/ml (0.300-4.500)
[2023-08-16 00:47] LABS: Anisocytosis Present; Basophils # (auto) 0.02 K/uL (0.00-0.20); Basophils % (auto) 0.3 %; Eosinophils # (auto) 0.35 K/uL (0.00-0.50); Eosinophils % (auto) 5.8 %; Hypochromasia Present; Immature Granulocytes # (auto) 0.04 K/uL (0.01-0.20); Immature Granulocytes % (auto) 0.7 %; Lymphocytes # (auto) 1.76 K/uL (1.20-3.40); Lymphocytes % (auto) 29.2 %; Monocytes # (auto) 0.88 K/uL (0.11-0.59); Monocytes % (auto) 14.6 %; Neutrophils # (auto) 2.97 K/uL (1.40-6.50); Neutrophils % (auto) 49.4 %; Ovalocytes 1+
--- NOTE | 2023-08-16 03:32 | CT Scan Report ---
Exam(s): CT HEAD Without Contrast EXAM: CT Head Without Intravenous Contrast CLINICAL HISTORY: Reason for exam: confusion. TECHNIQUE: Axial computed tomography images of the head/brain without intravenous contrast. CTDI is 36.05 mGy and DLP is 624.41 mGy-cm. Automated exposure control was utilized for the study. A dose lowering technique was utilized adhering to the principles of ALARA. COMPARISON: CT Head dated 04/25/23 FINDINGS: Brain: Volume loss with prominent ventricles and sulci. Periventricular and subcortical white matter hypoattenuation likely reflects chronic small vessel disease. No hemorrhage. Ventricles: See above. Bones/joints: Unremarkable. No acute fracture. Soft tissues: Small metallic density in the right frontal scalp, stable. Sinuses: Unremarkable as visualized. No acute sinusitis. Mastoid air cells: Unremarkable as visualized. No mastoid effusion. IMPRESSION: No acute findings in the head/brain. Electronically signed by: Justin Brizuela M.D. 08/16/23 03:32 AM
[2023-08-16] MEDS ORDERED: Heparin IV Adult Wt-Based Low-Dose w/ INITIAL Bolus Protocol IV STA (03:51)
[2023-08-16 03:55] LABS: D Dimer 780 ug/L FEU (0-500)
[2023-08-16] MEDS ORDERED: HEPARIN SOD (PORCINE) 1000 UNIT/ML IV ONE ×3 (04:07→12:00)
[2023-08-16] MEDS: HEPARIN SODIUM/DEXTROSE 25,000 UNITS/500 ML BAG IV SCH (04:24)
[2023-08-16] MEDS ORDERED: ATORVASTATIN 40 MG TAB PO STA (04:27)
--- NOTE | 2023-08-16 04:34 | History & Physical Report ---
Date of Service August 16, 2023 Assessment & Plan (1) Non-ST elevation [place] (NSTEMI): Plan: The patient is chest pain-free at this time. His troponin was initially 11 and then luna to 226.8 Heparin drip Aspirin 324 was administered and route by EMS continue aspirin 81 daily Statin therapy 80 mg of Lipitor x 1 then 40 mg nightly starting tomorrow Beta-sterling as at home Consult cardiology Serial EKG Echocardiogram (2) Elevated d-dimer: Plan: D-dimer is elevated however age-adjusted D-dimer is negative I suspect the elevation in the D-dimer is secondary to the acute coronary event (3) Permanent atrial fibrillation: Plan: Was on Pradaxa in the past however per ER physician was stopped by cardiology in the past due to possible fall risk. Continue heparin drip at this time decide on anticoagulation prior to discharge (4) Neuropathy: Plan: Chronic Neurontin dependent continues cautiously (5) Primary hypothyroidism: Plan: Continue home dose Synthroid Plan As described above. Please refer to orders for further planning Echocardiogram, repeat troponin, consult cardiology, cardiac cocktail including statin aspirin beta-sterling. Will apply half inch Nitropaste at this time as well. History of Present Illness Chief Complaint: Left-sided chest pain Primary Care Provider: Amando Washington MD Very pleasant 88-year-old male lives at home independently with family members living close by. Last evening he got ready for bed when laying down, shortly thereafter, he developed left-sided chest pain with associated shortness of breath. He called his family members they called 911 and he was brought to the ER by EMS for further evaluation and treatment. And route he had 324 milligrams of aspirin he also had nitroglycerin subcu lingually x 3 and upon arrival to the ER he was chest pain-free' Course in the ER initial troponin was negative at 11.6 however reflex troponin was significantly positive at 226.8. Serial EKGs in the ER were negative for dynamic changes or acute changes. Specifically EKGs demonstrated atrial fibrillation rate controlled with no acute ST-T abnormalities the atrial fibrillation is chronic. On history taking per the ER provider the patient's anticoagulation therapy for a for atrial fibrillation in the form of Pradaxa has been discontinued by his outpatient operation shift supervisor in the past due to a fall risk. However due to the fact the patient appears to be having an acute coronary syndrome this evening risks versus the benefits of anticoagulation have been made and it has been determined the patient would potentially benefit from heparin infusion therefore heparin drip has been recommended and ordered. Will continue aspirin therapy reported to high-dose statin for this morning and will continue statin continuing tomorrow evening. Will obtain consultation with cardiology and obtain an echocardiogram. The patient is completely asymptomatic at this time Allergies Allergy/AdvReac Type Severity Reaction Status Date / Time clarithromycin Allergy Severe HIVES Verified 08/16/23 00:32 Home Medications Medication Instructions Recorded Confirmed Type cholecalciferol (vitamin D3) 50 50 mcg PO DAILY 04/25/23 08/16/23 History mcg (2,000 unit) tablet (Vitamin D3) dabigatran etexilate 150 mg capsule 150 mg PO BID 04/25/23 08/16/23 History fluticasone 500 mcg-salmeterol 50 1 ea inhalation BID 04/25/23 08/16/23 History mcg/dose blistr powdr for inhalation (Wixela Inhub) fluticasone propionate 50 1 spray intranasal BID PRN 04/25/23 08/16/23 History mcg/actuation nasal Congestion spray,suspension gabapentin 600 mg tablet 600 mg PO QID 04/25/23 08/16/23 History levothyroxine 112 mcg tablet 112 mcg PO DAILYBB 04/25/23 08/16/23 History metoprolol succinate 25 mg 12.5 mg PO QAM 04/25/23 08/16/23 History tablet,extended release 24 hr acetaminophen 325 mg tablet 650 mg (2 x 325 mg) PO Q4H PRN 04/27/23 08/16/23 Rx pain #30 tabs Past Med/Surg History Medical History (Updated 08/16/23 @ 04:32 by Shayne Perez, PhD, DO) Primary hypothyroidism Elevated d-dimer Atrial fibrillation, chronic Ankylosing spondylitis Permanent atrial fibrillation Neuropathy Surgical History (Updated 05/20/23 @ 11:59 by Megan Arredondo RN) History of radical prostatectomy Previous back surgery x2 History of hernia surgery x2 Social History Smoking Status: Never smoker Hx Alcohol Use: No Hx Substance Use: No Preferred Language: Hebrew Communication Ability: Unable 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 Physical Exam 2 Physical Exam: In general: This is a pleasant 88-year-old white male who is alert and oriented x 3 at the time of my examination he interacts appropriately he denies any acute distress specifically denies any chest pain or chest symptoms whatsoever at this time. HEENT: Normocephalic atraumatic pupils are equal round and reactive to light bilaterally. No scleral icterus no conjunctival injection external auditory canals are patent septum is in the midline nose is without discharge oral mucosa is pink and moist without lesion. NECK: Supple no rigidity no lymphadenopathy no thyromegaly no carotid bruits no JVD no masses. HEART: Irregular rate and rhythm consistent with chronic atrial fibrillation rate controlled at this time. I do not appreciate any ectopy or rub. No murmur. LUNGS: Clear to auscultation bilaterally and anteriorly with no evidence of adventitious sounds/wheezes rales or rhonchi. ABDOMEN: Soft nontender, no rebound, no peritoneal signs, positive bowel sounds, no appreciable organomegaly. EXTREMITIES: Intact, no peripheral cyanosis, clubbing or edema. Strength is 5 out of 5 in extremities x4, no pathological reflexes. Left lower extremity is chronically cool to the touch due to a history of phlebitis when he was in his late teens pulses are palpable x 4 NEUROLOGICAL: Cranial nerves II through XII are grossly intact with no focal deficit elicited upon examination. 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 noted which is chronic Results & Data Results & Data Vital Signs (Past 12 Hours) Vital Signs Temp Pulse Pulse Resp BP BP Pulse Ox 08/16/23 04:02 60 08/16/23 04:00 65 18 124/77 98 08/16/23 03:00 65 16 113/63 97 08/16/23 02:00 56 L 15 110/66 97 08/16/23 01:00 59 L 14 106/64 97 08/16/23 00:15 62 15 119/70 95 08/16/23 00:07 94 08/15/23 23:55 66 08/15/23 23:34 36.5 C 75 18 116/64 93 O2 Del Method 08/16/23 04:02 08/16/23 04:00 08/16/23 03:00 Room Air 08/16/23 02:00 Room Air 08/16/23 01:00 Room Air 08/16/23 00:15 Room Air 08/16/23 00:07 Room Air 08/15/23 23:55 08/15/23 23:34 Room Air Code Status & VTE Plan Code Status Full code. I did specifically discuss this with him. In addition if he was ever in a position that he would not be able to make decisions for himself he request that we speak with his daughter. VTE Prophylaxis Plan VTE Prophylaxis will be ordered: Yes PG Care Time/CCT Total # of Minutes Spent Total Time Spent with Patient: Total time spent is greater than 50% in coordination of care (as documented) at patient's floor/unit and/or counseling patient: Coding Level of Care Code 92069 INT INP/OBS CARE 375MIN Diagnoses Non-ST elevation GA (NSTEMI) I21.4 Elevated d-dimer R79.89 Permanent atrial fibrillation I48.21 Neuropathy G62.9 Primary hypothyroidism E03.9
[2023-08-16] MEDS ORDERED: ACETAMINOPHEN 325 MG TAB PO PRN (05:26)
[2023-08-16] MEDS ORDERED: FLUTICASONE PROPIONATE NA SPR 16 GM BTL PRN (05:26)
[2023-08-16] MEDS: NITROGLYCERIN 2% OINTMENT 30GM TUBE EXT SCH ×3 (06:18→17:22)
[2023-08-16] MEDS: LEVOTHYROXINE SODIUM 112 MCG TABLET PO SCH (06:19)
--- NOTE | 2023-08-16 06:52 | XRay Report ---
SINGLE VIEW CHEST CLINICAL HISTORY: Atypical chest pain. FINDINGS: An AP, portable, upright chest radiograph is compared to study dated 04/25/2023. The examina tion is degraded by portable technique and apical lordotic positioning. The heart is enlarged and it noting atherosclerotic calcification of the thoracic aorta. There is pulmonary vascular congestion. C hronic interstitial thickening is similar to previous. There is elevation of the right hemidiaphragm with bibasilar scarring/atelectasis. No airspace consolidation or large pleural effusion is identifie d. No pneumothorax is seen. The skeletal structures are osteopenic. The bony thorax is grossly intact . IMPRESSION: 1. Cardiomegaly with pulmonary vascular congestion. 2. No airspace consolidation or large pleural effusion is identified. ACT 112: Negative or not required by law. Electronically signed by: Yony Marina M.D. 08/16/2023 6:50 AM
[2023-08-16 07:31] LABS: Albumin Globulin Ratio 1.1 (0.9-2); Albumin Level 3.8 gm/dl (3.4-5.0); BUN Creatinine Ratio 34.9 (10-20); Calcium 10.2 mg/dl (8.6-10.3); Creatinine Clr Calc Pharmacy 59.1 ml/min; Est GFR (African American) 90.4 ml/min; Globulin 3.5 gm/dl (2.5-4.0); Magnesium 1.9 mg/dl (1.7-2.4); Total Protein 7.3 gm/dl (6.0-8.3)
[2023-08-16 07:42] LABS: Hematocrit (blood only) 29.8 % (42.0-52.0); Hemoglobin 9.5 g/dl (14.0-18.0); Mean Corpuscular Hemoglobin 26.5 pg (25.0-34.0); Mean Corpuscular Hgb Conc 31.9 g/dL (32.0-36.0); Mean Corpuscular Volume 83.2 fL (80.0-100.0); Mean Platelet Volume 11.6 fL (9.4-12.4); Platelet Count 327 K/uL (130-400); RDW Coefficient of Variation 27.5 % (11.5-14.5); Red Blood Count 3.58 M/uL (4.70-6.10); White Blood Count 5.87 K/ul (4.8-10.8)
[2023-08-16 07:43] LABS: Anisocytosis Present; Basophils # (auto) 0.01 K/uL (0.00-0.20); Basophils % (auto) 0.2 %; Eosinophils # (auto) 0.23 K/uL (0.00-0.50); Eosinophils % (auto) 3.9 %; Hypochromasia Present; Immature Granulocytes # (auto) 0.05 K/uL (0.01-0.20); Immature Granulocytes % (auto) 0.9 %; Lymphocytes % (auto) 23.9 %; Monocytes # (auto) 0.73 K/uL (0.11-0.59); Monocytes % (auto) 12.4 %; Neutrophils # (auto) 3.45 K/uL (1.40-6.50); Neutrophils % (auto) 58.7 %; Ovalocytes 1+; Polychromasia 2+; Target Cells 1+; Tear Drop Cells 1+
[2023-08-16] MEDS: ASPIRIN 81 MG ECTAB PO SCH (08:34)
[2023-08-16] MEDS: METOPROLOL SUCC 25MG EXT REL TAB PO SCH (08:34)
[2023-08-16] MEDS: CHOLECALCIFEROL 1,000 UNITS 25 MCG TAB PO SCH (08:34)
[2023-08-16] MEDS: GABAPENTIN 600 MG TAB PO SCH ×4 (08:35→20:24)
[2023-08-16] MEDS: FLUTICASONE/VILANTEROL 100/25MCG 14 PUFFS/INHALER INH SCH (08:35)
[2023-08-16 10:56] LABS: ANTI-Xa, UFH(UnfractionatedHep 0.11 IU/ml (0.3-0.7)
--- NOTE | 2023-08-16 11:46 | XCELERA ---
[id number]
--- NOTE | 2023-08-16 13:08 | Hospitalist Progress Note ---
Date of Service August 16, 2023 Assessment & Plan (1) Non-ST elevation VA (NSTEMI): Plan: Troponin went up 11-->200-->2500. Continue to trend until peaks Awaiting cardiology evaluation for decision on cardiac catheterization Currently on heparin drip Patient got aspirin 325 mg upon presentation and currently on 81 mg daily Beta-sterling at home dose On statin Echocardiogram showed hypokinesis of apex and anterior wall Patient is chest pain-free at this time (2) Elevated d-dimer: Plan: D-dimer is elevated however age-adjusted D-dimer is negative I suspect the elevation in the D-dimer is secondary to the acute coronary event (3) Permanent atrial fibrillation: Plan: Was on Pradaxa in the past however per ER physician was stopped by cardiology in the past due to possible fall risk. Continue heparin drip at this time decide on anticoagulation prior to discharge (4) Neuropathy: Plan: Chronic Neurontin dependent continues cautiously (5) Primary hypothyroidism: Plan: Continue home dose Synthroid Plan Full code DVT prophylaxis: Heparin drip at this time Admission and Anticipated Discharge Date Admission Date: August 16, 2023 Subjective Patient denies any chest pain at this time. Denies shortness of breath. He says that he has not had any chest pain since he came to the emergency room and got aspirin. Review of Systems Review of Systems: All systems reviewed & are unremarkable except as noted in Subjective Physical Exam Physical Exam: General: Awake, conversant Heart: S1, S2/regular rate and rhythm, no murmur rubs or gallops Lungs: Clear to auscultation bilaterally. Normal effort Abdomen: Soft/nontender/nondistended. No hepatosplenomegaly Extremities: No clubbing/cyanosis. No edema Behavior: Appropriate, cooperative Results & Data Results & Data Vital Signs (Past 12 Hours) Vital Signs Temp Pulse Pulse Resp BP BP Pulse Ox 08/16/23 11:55 36.9 C 60 18 101/61 95 08/16/23 07:45 36.8 C 62 18 116/68 96 08/16/23 06:11 65 136/82 08/16/23 05:20 36.4 C L 64 18 154/82 H 97 08/16/23 05:00 65 16 144/89 H 98 08/16/23 04:30 68 18 129/71 94 08/16/23 04:02 60 08/16/23 04:00 65 18 124/77 98 08/16/23 03:00 65 16 113/63 97 08/16/23 02:00 56 L 15 110/66 97 O2 Del Method 08/16/23 11:55 Room Air 08/16/23 07:45 Room Air 08/16/23 06:11 08/16/23 05:20 Room Air 08/16/23 05:00 08/16/23 04:30 08/16/23 04:02 08/16/23 04:00 08/16/23 03:00 Room Air 08/16/23 02:00 Room Air Laboratory Results Abnormal lab results 08/15/23 08/16/23 08/16/23 Range/Units 23:45 02:44 06:40 RBC 3.58 L 3.58 L (4.70-6.10) M/uL Hgb 9.5 L 9.5 L (14.0-18.0) g/dl Hct 30.3 L 29.8 L (42.0-52.0) % MCHC 31.4 L 31.9 L (32.0-36.0) g/dL RDW Std Deviation 82.4 H 81.0 H (36.4-46.3) fL RDW Coeff of Gulshan 27.3 H 27.5 H (11.5-14.5) % [place] # (Auto) 0.88 H 0.73 H (0.11-0.59) K/uL D-Dimer 780 H* (0-500) ug/L FEU Heparin Anti-Xa, Unfract (0.3-0.7) IU/ml Sodium 135 L (136-145) mmol/L BUN 29 H 29 H (6-23) mg/dl BUN/Creatinine Ratio 22.0 H 34.9 H (10-20) Glucose 120 H (70-99(Fasting)) mg/dl Troponin I High Sens 226.8 H* D 2570.7 H* D (0-20) pg/ml B-Natriuretic Peptide 172 H (0-100) pg/ml 08/16/23 Range/Units 10:16 RBC (4.70-6.10) M/uL Hgb (14.0-18.0) g/dl Hct (42.0-52.0) % MCHC (32.0-36.0) g/dL RDW Std Deviation (36.4-46.3) fL RDW Coeff of Gulshan (11.5-14.5) % [place] # (Auto) (0.11-0.59) K/uL D-Dimer (0-500) ug/L FEU Heparin Anti-Xa, Unfract 0.11 L (0.3-0.7) IU/ml Sodium (136-145) mmol/L BUN (6-23) mg/dl BUN/Creatinine Ratio (10-20) Glucose (70-99(Fasting)) mg/dl Troponin I High Sens (0-20) pg/ml B-Natriuretic Peptide (0-100) pg/ml Diagnostic Findings Abnormal lab results 08/15/23 08/16/23 08/16/23 Range/Units 23:45 02:44 06:40 RBC 3.58 L 3.58 L (4.70-6.10) M/uL Hgb 9.5 L 9.5 L (14.0-18.0) g/dl Hct 30.3 L 29.8 L (42.0-52.0) % MCHC 31.4 L 31.9 L (32.0-36.0) g/dL RDW Std Deviation 82.4 H 81.0 H (36.4-46.3) fL RDW Coeff of Gulshan 27.3 H 27.5 H (11.5-14.5) % [place] # (Auto) 0.88 H 0.73 H (0.11-0.59) K/uL D-Dimer 780 H* (0-500) ug/L FEU Heparin Anti-Xa, Unfract (0.3-0.7) IU/ml Sodium 135 L (136-145) mmol/L BUN 29 H 29 H (6-23) mg/dl BUN/Creatinine Ratio 22.0 H 34.9 H (10-20) Glucose 120 H (70-99(Fasting)) mg/dl Troponin I High Sens 226.8 H* D 2570.7 H* D (0-20) pg/ml B-Natriuretic Peptide 172 H (0-100) pg/ml 08/16/23 Range/Units 10:16 RBC (4.70-6.10) M/uL Hgb (14.0-18.0) g/dl Hct (42.0-52.0) % MCHC (32.0-36.0) g/dL RDW Std Deviation (36.4-46.3) fL RDW Coeff of Gulshan (11.5-14.5) % [place] # (Auto) (0.11-0.59) K/uL D-Dimer (0-500) ug/L FEU Heparin Anti-Xa, Unfract 0.11 L (0.3-0.7) IU/ml Sodium (136-145) mmol/L BUN (6-23) mg/dl BUN/Creatinine Ratio (10-20) Glucose (70-99(Fasting)) mg/dl Troponin I High Sens (0-20) pg/ml B-Natriuretic Peptide (0-100) pg/ml PG Care Time/CCT Total # of Minutes Spent Total Time Spent with Patient: Total time spent is greater than 50% in coordination of care (as documented) at patient's floor/unit and/or counseling patient: Coding Level of Care Code 18668 SUB INP/OBS CARE 2/35MIN Diagnoses Non-ST elevation VA (NSTEMI) I21.4 Elevated d-dimer R79.89 Permanent atrial fibrillation I48.21 Neuropathy G62.9 Primary hypothyroidism E03.9
--- NOTE | 2023-08-16 13:45 | Cardiology Consultation ---
Date of Consultation August 16, 2023 Assessment & Plan (1) Non-ST elevation [place] (NSTEMI): (2) Pulmonary hypertension: (3) Permanent atrial fibrillation: (4) Tricuspid regurgitation: Plan ASSESSMENT/PLAN: 1. NSTEMI: No further angina since admission. Discussed findings. Trend troponin until peak. Small LAD wall motion abnormality on echo. Continue aspirin. Continue heparin drip if no bleeding or other contraindication, for 48 hours. Discussed medical therapy versus cardiac catheterization. Risks and benefits of catheterization discussed with him in detail. Cardiac catheterization seems reasonable given rest symptoms, but not currently urgently indicated as he is asymptomatic now. After discussion, he prefers medical therapy only for now. He was asked to contact nursing staff immediately if he should have recurrent symptoms. Would not further titrate beta-sterling for now given heart rates in the 50s to 60s on telemetry while in atrial fibrillation. Has nitroglycerin patch in place and tomorrow could replace with oral isosorbide mononitrate. Could consider adding Plavix to his regimen for 1 year but given anemia issues in the past, will await input from his primary wafer substrate tester. 2. Pulmonary hypertension: Unclear if this is new or chronic. Dr. Ruiz, when he returns tomorrow, will likely have previous echo reports available for comparison. He does not appear to be significantly hypervolemic at this time. 3. Permanent atrial fibrillation: Heart rate well-controlled. No longer on anticoagulation therapy due to frequent falls and chronic anemia which apparently has improved with discontinuation of outpatient anticoagulation thera py. Continue beta-sterling. 4. Tricuspid regurgitation: Appears moderate. Can be followed as an outpatient. 5. Disposition: Dr. Ruiz, his primary wafer substrate tester, will continue cardiology care tomorrow. Patient care communicated with Dr. Peterson of the primary hospitalist service. Patient care also discussed with nursing staff. Highly complex medical issues. Thank you for allowing me to participate in the care of your patient. Please call for any other questions or concerns. Sincerely, Donte Martinez M.D. History of Present Illness Reason for Consultation: NSTEMI Requesting Physician: Shayne Perez Attending Physician: Lucille Peterson MD History of Present Illness Mr. Burgos is a very pleasant 88-year-old gentleman with a history significant for permanent atrial fibrillation, ankylosing spondylitis, neuropathy, hypothyroidism, and anemia. His primary wafer substrate tester is Dr. Ruiz. He was admitted on 08/15/2023 after presenting with left-sided chest discomfort. At approximately 8 PM on 08/15/2023, he had left-sided chest discomfort that he has a difficult time describing. It was nonradiating and there was associated shortness of breath. Symptoms persisted for a total of approximately 2 hours. He received aspirin and nitroglycerin and came to the hospital via EMS. He has not noted any exertional symptoms but apparently has been more sedentary recently. Family states that he appears dyspneic on exertion when he ambulates but this is chronic and stable. They mention that he has a difficult time walking given musculoskeletal issues. He has been chest pain-free since hospitalized. He currently denies shortness of breath, chest pain, syncope, near syncope, palpitations, edema, melena, hematochezia, or hematuria. He apparently has received PRBC in the past for anemia and reports that hemoglobin has improved in general after recent discontinuation of anticoagulation therapy. Anticoagulation therapy was discontinued secondary to frequent falls. He is unstable on his feet. Review of systems: As above. Review of systems otherwise negative/unremarkable. Family history: Noncontributory. Social history: Denies smoking. 4 ounces of red wine 4 days/week. Lives alone. . in May 2023. Had 5 children but 1 . Family checks in on him daily. 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 His son (Sean) and [id number] (Geraldine) were present at the bedside. Allergies Allergy/AdvReac Type Severity Reaction Status Date / Time clarithromycin Allergy Severe HIVES Verified 08/16/23 00:32 Home Medications Medication Instructions Recorded Confirmed Type cholecalciferol (vitamin D3) 50 50 mcg PO DAILY 04/25/23 08/16/23 History mcg (2,000 unit) tablet (Vitamin D3) dabigatran etexilate 150 mg capsule 150 mg PO BID 04/25/23 08/16/23 History fluticasone 500 mcg-salmeterol 50 1 ea inhalation BID 04/25/23 08/16/23 History mcg/dose blistr powdr for inhalation (Wixela Inhub) fluticasone propionate 50 1 spray intranasal BID PRN 04/25/23 08/16/23 History mcg/actuation nasal Congestion spray,suspension gabapentin 600 mg tablet 600 mg PO QID 04/25/23 08/16/23 History levothyroxine 112 mcg tablet 112 mcg PO DAILYBB 04/25/23 08/16/23 History metoprolol succinate 25 mg 12.5 mg PO QAM 04/25/23 08/16/23 History tablet,extended release 24 hr acetaminophen 325 mg tablet 650 mg (2 x 325 mg) PO Q4H PRN 04/27/23 08/16/23 Rx pain #30 tabs Patient History Medical History Primary hypothyroidism Elevated d-dimer Atrial fibrillation, chronic Ankylosing spondylitis Permanent atrial fibrillation Neuropathy Surgical History History of radical prostatectomy Previous back surgery x2 History of hernia surgery x2 Social History Smoking Status: Never smoker Second Hand Exposure: No; Do You Dip or Chew Tobacco: No; Hx Alcohol Use: Yes Alcohol type: wine Hx Substance Use: No Preferred Language: Bruneian Communication Ability: Effective Striker Out Required: No Beliefs That Will Affect Care: None Current Living Situation: Alone Feels Safe at Home: Yes Assistive Devices: Cane and Walker Physical Exam Physical Exam: Gen.: No acute distress. Alert. Hard of hearing. HEENT: Anicteric sclera. Neck: No JVD. Normal carotid upstrokes bilaterally. Cardiac: Irregularly irregular with normal heart rate. Normal S1-S2. 2/6 syst olic murmur. Pulmonary: Clear to auscultation bilaterally without wheezes, rales, or rhonchi. Abdomen: Soft, nontender, nondistended, with normoactive bowel sounds. No bruits noted. Extremities: 2+ radial pulses bilaterally. 2+ posterior tibialis pulses bilaterally. Trace bilateral lower extremity edema. No cyanosis. Psychiatric: Affect appears appropriate. Results & Data Vital Signs (Past 12 Hours) Vital Signs Temp Pulse Pulse Resp BP BP Pulse Ox 08/16/23 11:55 36.9 C 60 18 101/61 95 08/16/23 07:45 36.8 C 62 18 116/68 96 08/16/23 06:11 65 136/82 08/16/23 05:20 36.4 C L 64 18 154/82 H 97 08/16/23 05:00 65 16 144/89 H 98 08/16/23 04:30 68 18 129/71 94 08/16/23 04:02 60 08/16/23 04:00 65 18 124/77 98 08/16/23 03:00 65 16 113/63 97 08/16/23 02:00 56 L 15 110/66 97 O2 Del Method 08/16/23 11:55 Room Air 08/16/23 07:45 Room Air 08/16/23 06:11 08/16/23 05:20 Room Air 08/16/23 05:00 08/16/23 04:30 08/16/23 04:02 08/16/23 04:00 08/16/23 03:00 Room Air 08/16/23 02:00 Room Air Laboratory Results Laboratory Results - last 24 hr 08/15/23 08/16/23 08/16/23 23:45 02:44 06:40 WBC 6.02 5.87 RBC 3.58 L 3.58 L Hgb 9.5 L 9.5 L Hct 30.3 L 29.8 L MCV 84.6 83.2 MCH 26.5 26.5 MCHC 31.4 L 31.9 L RDW Std Deviation 82.4 H 81.0 H RDW Coeff of Gulshan 27.3 H 27.5 H Plt Count 400 327 MPV 11.6 11.6 Immature Gran % (Auto) 0.7 0.9 Neut % (Auto) 49.4 58.7 Lymph % (Auto) 29.2 23.9 [place] % (Auto) 14.6 12.4 Eos % (Auto) 5.8 3.9 Baso % (Auto) 0.3 0.2 Neut # (Auto) 2.97 3.45 Lymph # (Auto) 1.76 1.40 [place] # (Auto) 0.88 H 0.73 H Eos # (Auto) 0.35 0.23 Baso # (Auto) 0.02 0.01 Immature Gran # (Auto) 0.04 0.05 Polychromasia 2+ Hypochromasia Present Present Anisocytosis Present Present Target Cells 1+ Tear Drop Cells 1+ Ovalocytes 1+ 1+ D-Dimer 780 H* Heparin Anti-Xa, Unfract Sodium 136 135 L Potassium 4.2 4.0 Chloride 102 103 Carbon Dioxide 29 29 Anion Gap 5 3 BUN 29 H 29 H Creatinine 1.32 0.83 D Est Cr Clr Drug Dosing 39.7 59.1 Est GFR ( Amer) 55.0 90.4 Est GFR (Non-Af Amer) 47.5 78.0 BUN/Creatinine Ratio 22.0 H 34.9 H Glucose 120 H 99 Calcium 9.9 10.2 Magnesium 2.1 1.9 Total Bilirubin 0.8 1.0 AST 20 31 ALT 17 17 Alkaline Phosphatase 79 74 Troponin I High Sens 11.6 226.8 H* D 2570.7 H* D B-Natriuretic Peptide 172 H Total Protein 7.4 7.3 Albumin 3.8 3.8 Globulin 3.6 3.5 Albumin/Globulin Ratio 1.1 1.1 Lipase 29 TSH 1.100 08/16/23 08/16/23 10:16 14:15 WBC RBC Hgb Hct MCV MCH MCHC RDW Std Deviation RDW Coeff of Gulshan Plt Count MPV Immature Gran % (Auto) Neut % (Auto) Lymph % (Auto) [place] % (Auto) Eos % (Auto) Baso % (Auto) Neut # (Auto) Lymph # (Auto) [place] # (Auto) Eos # (Auto) Baso # (Auto) Immature Gran # (Auto) Polychromasia Hypochromasia Anisocytosis Target Cells Tear Drop Cells Ovalocytes D-Dimer Heparin Anti-Xa, Unfract 0.11 L Sodium Potassium Chloride Carbon Dioxide Anion Gap BUN Creatinine Est Cr Clr Drug Dosing Est GFR ( Amer) Est GFR (Non-Af Amer) BUN/Creatinine Ratio Glucose Calcium Magnesium Total Bilirubin AST ALT Alkaline Phosphatase Troponin I High Sens 9092.6 H* D B-Natriuretic Peptide Total Protein Albumin Globulin Albumin/Globulin Ratio Lipase TSH Diagnostic Findings Echo 08/16/2023: Normal LV size and systolic function. EF 60%. Severe hypokinesis of the apex, distal anterior and distal anterolateral wall segments. Moderate LVH. Biatrial dilation. Sclerotic aortic valve without significant stenosis. Mild MR. Moderate TR. RVSP 70. Telemetry personally reviewed: Rate controlled atrial fibrillation. ECG personally reviewed 08/16/2023 at 0020: Atrial fibrillation with slow ventricular response at [address] elevation involving the lateral leads. Incomplete RBBB. ECG 08/15/2023 at 2347: A-fib 63 bpm. Incomplete RBBB. Possible septal infarct. Minimal ST elevation of the lateral leads. History and physical report reviewed. Labs reviewed and notable for stable anemia, normal potassium, stable renal function, normal magnesium, elevated high-sensitivity troponin initially of 11.6 trending upward to 9092. Chest x-ray 08/15/2023: Chronic interstitial thickening similar to previous per radiology. Pulmonary vascular congestion. Chest x-ray image personally reviewed. CT head 08/16/2023: No acute findings per radiology. Medications Administered Current Inpatient Medications Acetaminophen (Acetaminophen 325 Mg Tab) 650 mg PO Q4H PRN PRN Reason: Pain or Fever Stop: 09/15/23 05:25 Aspirin (Aspirin 81 Mg Ectab) 81 mg PO QAM [facility] Stop: 09/15/23 08:59 Last Admin: 08/16/23 08:34 Dose: 81 mg Atorvastatin Calcium (Atorvastatin 40 Mg Tab) 40 mg PO QPM [facility] Stop: 09/16/23 20:59 Fluticasone Propionate (Fluticasone Propionate Na Spr 16 Gm Btl) 1 sprays NA BID PRN PRN Reason: Congestion Stop: 09/15/23 05:25 Fluticasone/Vilanterol (Fluticasone/Vilanterol 100/25mcg 14 Puffs/Inhaler) 1 puffs INH DAILY [facility] Stop: 09/15/23 08:59 Last Admin: 08/16/23 08:35 Dose: 1 puffs Gabapentin (Gabapentin 600 Mg Tab) 600 mg PO QID [facility] Stop: 09/15/23 08:59 Last Admin: 08/16/23 12:49 Dose: 600 mg Heparin Sodium/Dextrose (Heparin Sodium/Dextrose) 25,000 units in 500 mls @ 21 mls/hr IV .[id number] [facility]; Protocol Stop: 09/15/23 04:14 Last Titration: 08/16/23 11:20 Dose: 1,050 units/hr, 21 mls/hr Levothyroxine Sodium (Levothyroxine Sodium 112 Mcg Tablet) 112 mcg PO DAILYBB [facility] Stop: 09/15/23 06:29 Last Admin: 08/16/23 06:19 Dose: 112 mcg Metoprolol Succinate (Metoprolol Succ 25mg Ext Rel Tab) 12.5 mg PO QAM [facility] Stop: 09/15/23 08:59 Last Admin: 08/16/23 08:34 Dose: 12.5 mg Nitroglycerin (Nitroglycerin 2% Ointment 30gm Tube) 0.5 inch EXT Q6 [facility] Stop: 09/15/23 05:59 Last Admin: 08/16/23 12:48 Dose: 0.5 inch Vitamin D (Cholecalciferol 1,000 Units 25 Mcg Tab) 2,000 units PO DAILY [facility] Stop: 09/15/23 08:59 Last Admin: 08/16/23 08:34 Dose: 2,000 units PG Care Time/CCT Total # of Minutes Spent Total Time Spent with Patient: Total time spent is greater than 50% in coordination of care (as documented) at patient's floor/unit and/or counseling patient: Coding Level of Care Code 74641 INT INP/OBS CARE 3/75MIN Diagnoses Non-ST elevation OK (NSTEMI) I21.4 Pulmonary hypertension I27.20 Permanent atrial fibrillation I48.21 Tricuspid regurgitation I07.1
[2023-08-16 19:19] LABS: ANTI-Xa, UFH(UnfractionatedHep 0.22 IU/ml (0.3-0.7)
[2023-08-17] MEDS: NITROGLYCERIN 2% OINTMENT 30GM TUBE EXT SCH ×4 (00:30→18:24)
[2023-08-17] MEDS: HEPARIN SODIUM/DEXTROSE 25,000 UNITS/500 ML BAG IV SCH (05:12)
[2023-08-17] MEDS: LEVOTHYROXINE SODIUM 112 MCG TABLET PO SCH (06:07)
[2023-08-17] MEDS: GABAPENTIN 600 MG TAB PO SCH ×4 (07:34→21:15)
[2023-08-17] MEDS: ASPIRIN 81 MG ECTAB PO SCH (07:34)
[2023-08-17] MEDS: METOPROLOL SUCC 25MG EXT REL TAB PO SCH (07:35)
[2023-08-17] MEDS: CHOLECALCIFEROL 1,000 UNITS 25 MCG TAB PO SCH (07:35)
[2023-08-17] MEDS: FLUTICASONE/VILANTEROL 100/25MCG 14 PUFFS/INHALER INH SCH (07:36)
[2023-08-17 08:37] LABS: ANTI-Xa, UFH(UnfractionatedHep 0.25 IU/ml (0.3-0.7)
--- NOTE | 2023-08-17 09:10 | Cardiology Progress Note ---
Date of Service August 17, 2023 Assessment & Plan (1) Non-ST elevation VA (NSTEMI): (2) Pulmonary hypertension: (3) Atrial fibrillation, chronic: Plan History: 1. Chronic atrial fibrillation 2. 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 Hypertension 4. 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 Burgos discussed cardiac catheterization yesterday with Dr. Martinez but preferred medical intervention. We discussed again today. At this point his EF is preserved though he does have LAD territory wall motion abnormalities which are new from 2019 when he had his last echo at [facility]. His troponin has peaked and is trending down and he is without chest pain. His situation is complicated by a history of MDS. He has not required a blood transfusion since coming off of anticoagulation. If cardiac catheterization was undertaken and stents were placed he would need to stay on DAPT for a year which may prove difficult given his history of anemia, therefore a medical approach is reasonable. The severity of his pulmonary htn on echo is also new. He was previously in the 45-50 mmhg range. His bnp was mildly elevated on admission and he has some congestion on his chest xray. I will hold off on IV diuretic for now as his blood pressure is borderline and his BUN is increased but a small po dose could be started, will add furosemide 20 mg po daily. He is not feeling sob. He has chronic afib. As discussed above, he was taken off of anticoagulation due to history of transfusion dependent anemia as well as frequent falls. His rate is controlled. I would recommend maintaining heparin for 48 hours total and then discontinue. We could attempt daily 81 mg asa with close monitoring of his hgb. His nitro paste can stopped tonight and changed to Imdur for tomorrow. Admission and Anticipated Discharge Date Admission Date: August 16, 2023 Subjective Mr. Burgos is chest pain free today. He wonders when he might be able to go home. Otherwise no complaints. Review of Systems Review of Systems: All systems reviewed & are unremarkable except as noted in HPI & below Physical Exam Constitutional: WD/WN, vitals as above Respiratory: normal respiratory effort, lungs clear to auscultation Cardiovascular: Rate/Rhythm: + abnormal rate and + abnormal rhythm Heart Sounds: normal S1 and normal S2 Extremities: no edema Skin: no rashes, warm and dry Neurologic: moves all extremities and awake Psychiatric: A+Ox3, euthymic affect Results & Data Vital Signs (Past 12 Hours) Vital Signs Temp Pulse Resp BP BP Pulse Ox O2 Del Method 08/17/23 08:00 36.6 C 59 L 18 110/51 L 111/79 95 Room Air 08/17/23 06:06 62 121/69 08/17/23 03:15 36.4 C L 52 L 18 109/59 L 94 Room Air 08/17/23 00:28 60 106/49 L 08/16/23 22:05 36.7 C 52 L 18 102/56 L 95 Room Air
[2023-08-17] MEDS: FUROSEMIDE 20 MG TAB PO SCH (11:40)
--- NOTE | 2023-08-17 13:25 | Hospitalist Progress Note ---
Date of Service August 17, 2023 Assessment & Plan (1) Non-ST elevation [place] (NSTEMI): Plan: Troponin peaked at 2500. Cardiology on board. Although echocardiogram showed LAD territory wall motion abnormalities, his EF is preserved. The plan is to continue medical management. If stents were placed, he would need to stay on DAPT for a year which would have been difficult with his history of anemia and MDS. Plan is to continue heparin drip for total of 48 hours. We can attempt 81 mg of aspirin with close monitoring of his hemoglobin Plan to switch to Imdur tomorrow after stopping Nitropaste tonight Continue statin, metoprolol, Lipitor Check CBC in a.m. (2) Elevated d-dimer: Plan: D-dimer is elevated however age-adjusted D-dimer is negative I suspect the elevation in the D-dimer is secondary to the acute coronary event (3) Permanent atrial fibrillation: Plan: Was on Pradaxa in the past however per ER physician was stopped by cardiology in the past due to possible fall risk. Continue heparin drip at this time. Discontinue after 48 hours. (4) Neuropathy: Plan: Chronic Neurontin dependent continues cautiously (5) Primary hypothyroidism: Plan: Continue home dose Synthroid Plan Full code DVT prophylaxis: Heparin drip at this time Consult PT/OT Admission and Anticipated Discharge Date Admission Date: August 16, 2023 Subjective Patient has remained chest pain-free. Denies shortness of breath. Review of Systems Review of Systems: All systems reviewed & are unremarkable except as noted in Subjective Physical Exam Physical Exam: General: Awake, conversant Heart: S1, S2/regular rate and rhythm, no murmur rubs or gallops Lungs: Clear to auscultation bilaterally. Normal effort Abdomen: Soft/nontender/nondistended. No hepatosplenomegaly Extremities: No clubbing/cyanosis. No edema Behavior: Appropriate, cooperative Results & Data Results & Data Vital Signs (Past 12 Hours) Vital Signs Temp Pulse Pulse Resp BP BP Pulse Ox 08/17/23 11:00 36.8 C 60 18 118/74 96 08/17/23 08:00 65 08/17/23 08:00 36.6 C 59 L 18 110/51 L 111/79 95 08/17/23 06:06 62 121/69 08/17/23 03:15 36.4 C L 52 L 18 109/59 L 94 O2 Del Method 12/18/23 11:00 Room Air 08/17/23 08:00 08/17/23 08:00 Room Air 08/17/23 06:06 08/17/23 03:15 Room Air Laboratory Results Abnormal lab results 08/16/23 08/16/23 08/17/23 Range/Units 14:15 18:37 00:48 Heparin Anti-Xa, Unfract 0.22 L 0.20 L (0.3-0.7) IU/ml Troponin I High Sens 9092.6 H* D 9419.9 H* 8022.4 H* (0-20) pg/ml 08/17/23 Range/Units 07:53 Heparin Anti-Xa, Unfract 0.25 L (0.3-0.7) IU/ml Troponin I High Sens (0-20) pg/ml PG Care Time/CCT Total # of Minutes Spent Total Time Spent with Patient: Total time spent is greater than 50% in coordination of care (as documented) at patient's floor/unit and/or counseling patient: Coding Level of Care Code 83149 SUB INP/OBS CARE 2/35MIN Diagnoses Non-ST elevation MO (NSTEMI) I21.4 Elevated d-dimer R79.89 Permanent atrial fibrillation I48.21 Neuropathy G62.9 Primary hypothyroidism E03.9
[2023-08-17 16:25] LABS: ANTI-Xa, UFH(UnfractionatedHep 0.18 IU/ml (0.3-0.7)
[2023-08-17] MEDS ORDERED: HEPARIN SOD (PORCINE) 1000 UNIT/ML IV ONE (17:02)
[2023-08-17] MEDS ORDERED: ATORVASTATIN 40 MG TAB PO SCH (21:00)
--- NOTE | 2023-08-17 22:51 | Electrocardiogram Report ---
Test Reason : Blood Pressure : / mmHG Vent. Rate : 063 BPM Atrial Rate : 000 BPM P-R Int : 000 ms QRS Dur : 094 ms QT Int : 418 ms P-R-T Axes : 000 -45 024 degrees QTc Int : 427 ms Atrial fibrillation Incomplete right bundle branch block Left anterior fascicular block Anteroseptal infarct , age undetermined Abnormal ECG When compared with ECG of 25-APR-2023 12:27, Left anterior fascicular block is now Present Non-specific change in ST segment in Lateral leads T wave amplitude has increased in Lateral leads Confirmed by Edgar Martinez ([id number]) on 08/17/2023 10:51:21 PM Referred By: REFERRED SELF Confirmed By:Edgar Martinez
--- NOTE | 2023-08-17 22:52 | Electrocardiogram Report ---
Test Reason : Blood Pressure : / mmHG Vent. Rate : 058 BPM Atrial Rate : 000 BPM P-R Int : 000 ms QRS Dur : 098 ms QT Int : 442 ms P-R-T Axes : 000 -42 001 degrees QTc Int : 433 ms Atrial fibrillation with slow ventricular response Left axis deviation Incomplete right bundle branch block Abnormal ECG When compared with ECG of 15-AUG-2023 23:47, No significant change was found Confirmed by Edgar Martinez ([id number]) on 08/17/2023 10:52:05 PM Referred By: REFERRED SELF Confirmed By:Edgar Martinez
[2023-08-18 01:19] LABS: ANTI-Xa, UFH(UnfractionatedHep 0.27 IU/ml (0.3-0.7)
[2023-08-18] MEDS: HEPARIN SODIUM/DEXTROSE 25,000 UNITS/500 ML BAG IV SCH (03:09)
[2023-08-18] MEDS: LEVOTHYROXINE SODIUM 112 MCG TABLET PO SCH (05:52)
--- NOTE | 2023-08-18 06:05 | Electrocardiogram Report ---
Test Reason : Blood Pressure : / mmHG Vent. Rate : 059 BPM Atrial Rate : 050 BPM P-R Int : 000 ms QRS Dur : 094 ms QT Int : 414 ms P-R-T Axes : 000 -63 063 degrees QTc Int : 409 ms Atrial fibrillation with slow ventricular response Incomplete right bundle branch block Left anterior fascicular block Poor R wave progression, consider anterior WI vs. lead placement vs. LVH Abnormal ECG When compared with ECG of 16-AUG-2023 00:20, Nonspecific T wave abnormality now evident in Lateral leads Confirmed by Edgar Martinez ([id number]) on 08/18/2023 6:04:56 AM Referred By: REFERRED SELF Confirmed By:Edgar Martinez
[2023-08-18] MEDS: FLUTICASONE/VILANTEROL 100/25MCG 14 PUFFS/INHALER INH SCH (08:21)
[2023-08-18] MEDS: ASPIRIN 81 MG ECTAB PO SCH (08:21)
[2023-08-18] MEDS: CHOLECALCIFEROL 1,000 UNITS 25 MCG TAB PO SCH (08:21)
[2023-08-18] MEDS: GABAPENTIN 600 MG TAB PO SCH (08:22)
[2023-08-18] MEDS: FUROSEMIDE 20 MG TAB PO SCH (08:22)
[2023-08-18] MEDS: METOPROLOL SUCC 25MG EXT REL TAB PO SCH (08:23)
[2023-08-18 08:25] LABS: Hematocrit (blood only) 30.7 % (42.0-52.0); Hemoglobin 9.9 g/dl (14.0-18.0); Mean Corpuscular Hemoglobin 26.4 pg (25.0-34.0); Mean Corpuscular Hgb Conc 32.2 g/dL (32.0-36.0); Mean Corpuscular Volume 81.9 fL (80.0-100.0); Mean Platelet Volume 11.2 fL (9.4-12.4); Platelet Count 266 K/uL (130-400); RDW Coefficient of Variation 26.7 % (11.5-14.5); Red Blood Count 3.75 M/uL (4.70-6.10); White Blood Count 5.06 K/ul (4.8-10.8)
[2023-08-18 08:31] LABS: BUN Creatinine Ratio 32.1 (10-20); Calcium 8.9 mg/dl (8.6-10.3); Creatinine Clr Calc Pharmacy 87.2 ml/min; Est GFR (African American) 106.3 ml/min; Est GFR (Non-African American) 91.7 ml/min; Potassium 3.5 mmol/L (3.5-5.1)
--- NOTE | 2023-08-18 08:42 | Cardiology Progress Note ---
Date of Service August 18, 2023 Assessment & Plan (1) Non-ST elevation OR (NSTEMI): (2) Pulmonary hypertension: (3) Atrial fibrillation, chronic: Plan History: 1. Chronic atrial fibrillation 2. 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 Hypertension 4. 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 Burgos is chest pain free. His EKG now shows T wave inversions anterolaterally which aligns with the new wall motion abnormalities on his echo. He appears euvolemic. As discussed yesterday, Mr. Burgos preferred a medical approach to his event rather than cardiac catheterization which we would agree with. At this point his EF is preserved. His situation is complicated by a history of MDS and severe anemia requiring transfusion. If cardiac catheterization was undertaken and stents were placed he would need to stay on DAPT for a year which may prove difficult given his history of anemia. The severity of his pulmonary htn on echo is also new. He was previously in the 45-50 mmhg range. His bnp was mildly elevated on admission and he has some congestion on his chest xray. Furosemide 20 mg po daily was initiated. He is not feeling sob. He can go home on this dose but should have a bmp in a week or so to make sure he is not getting too dry. He has chronic afib. He was taken off of anticoagulation in May due to history of transfusion dependent anemia as well as frequent falls. His rate is controlled. He has completed heparin for 48 hours total. He can be discharged with Imdur and aspirin. His hgb will need to be watched closely. His blood pressure is a little elevated today but we can wait to address this at follow up so as not to overcorrect. I will update his son over the phone today. Admission and Anticipated Discharge Date Admission Date: August 16, 2023 Subjective Mr. Burgos denies any chest pain or pressure and notes he was comfortable overnight. The nursing notes overnight describe some confusion requiring redirection. He would like to go home. Review of Systems Review of Systems: All systems reviewed & are unremarkable except as noted in HPI & below Physical Exam Constitutional: WD/WN, vitals as above Respiratory: normal respiratory effort, lungs clear to auscultation Cardiovascular: Rate/Rhythm: + abnormal rate and + abnormal rhythm Heart Sounds: normal S1 and normal S2 Extremities: no edema Skin: no rashes, warm and dry Neurologic: moves all extremities and awake Psychiatric: A+Ox3, euthymic affect Results & Data Vital Signs (Past 12 Hours) Vital Signs Temp Pulse Pulse Resp BP BP Pulse Ox 08/18/23 07:38 36.4 C L 61 18 149/81 H 97 08/18/23 02:30 36.5 C 67 18 151/77 H 96 08/17/23 23:20 36.6 C 82 18 155/90 H 95 08/17/23 21:58 66 O2 Del Method 08/18/23 07:38 Room Air 08/18/23 02:30 Room Air 08/17/23 23:20 Room Air 08/17/23 21:58
[2023-08-18] MEDS ORDERED: ISOSORBIDE MONO EXTENDED REL 30 MG TABCR PO SCH (09:00)
--- NOTE | 2023-08-18 12:22 | Discharge Summary ---
Date of Service August 18, 2023 Admission HPI Per Admitting Provider Very pleasant 88-year-old male lives at home independently with family members living close by. Last evening he got ready for bed when laying down, shortly thereafter, he developed left-sided chest pain with associated shortness of breath. He called his family members they called 911 and he was brought to the ER by EMS for further evaluation and treatment. And route he had 324 milligrams of aspirin he also had nitroglycerin subcu lingually x 3 and upon arrival to the ER he was chest pain-free' Course in the ER initial troponin was negative at 11.6 however reflex troponin was significantly positive at 226.8. Serial EKGs in the ER were negative for dynamic changes or acute changes. Specifically EKGs demonstrated atrial fibrillation rate controlled with no acute ST-T abnormalities the atrial fibrillation is chronic. On history taking per the ER provider the patient's anticoagulation therapy for a for atrial fibrillation in the form of Pradaxa has been discontinued by his outpatient medical equipment repairer in the past due to a fall risk. However due to the fact the patient appears to be having an acute coronary syndrome this evening risks versus the benefits of anticoagulation have been made and it has been determined the patient would potentially benefit from heparin infusion therefore heparin drip has been recommended and ordered. Will continue aspirin therapy reported to high-dose statin for this morning and will continue statin continuing tomorrow evening. Will obtain consultation with cardiology and obtain an echocardiogram. The patient is completely asymptomatic at this time Admission Exam Per Admitting Provider In general: This is a pleasant 88-year-old white male who is alert and oriented x 3 at the time of my examination he interacts appropriately he denies any acute distress specifically denies any chest pain or chest symptoms whatsoever at this time. HEENT: Normocephalic atraumatic pupils are equal round and reactive to light bilaterally. No scleral icterus no conjunctival injection external auditory canals are patent septum is in the midline nose is without discharge oral mucosa is pink and moist without lesion. NECK: Supple no rigidity no lymphadenopathy no thyromegaly no carotid bruits no JVD no masses. HEART: Irregular rate and rhythm consistent with chronic atrial fibrillation rate controlled at this time. I do not appreciate any ectopy or rub. No murmur. LUNGS: Clear to auscultation bilaterally and anteriorly with no evidence of adventitious sounds/wheezes rales or rhonchi. ABDOMEN: Soft nontender, no rebound, no peritoneal signs, positive bowel sounds, no appreciable organomegaly. EXTREMITIES: Intact, no peripheral cyanosis, clubbing or edema. Strength is 5 out of 5 in extremities x4, no pathological reflexes. Left lower extremity is chronically cool to the touch due to a history of phlebitis when he was in his late teens pulses are palpable x 4 NEUROLOGICAL: Cranial nerves II through XII are grossly intact with no focal deficit elicited upon examination. 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 Non-ST elevation NM, medically managed 2. Pulmonary hypertension 3. Chronic atrial fibrillation 4. Acute CHF preserved EF 4. Ischemic cardiomyopathy Discharge Exam General: Awake, conversant Heart: S1, S2/regular rate and rhythm, no murmur rubs or gallops Lungs: Clear to auscultation bilaterally. Normal effort Abdomen: Soft/nontender/nondistended. No hepatosplenomegaly Extremities: No clubbing/cyanosis. No edema Behavior: Appropriate, cooperative Discharge Data Allergies Allergy/AdvReac Type Severity Reaction Status Date / Time clarithromycin Allergy Severe HIVES Verified 08/16/23 00:32 Consultations 08/16/23 03:53 ED Decision to Admit Stat 08/16/23 05:26 Consult Cardiology Routine Ordered Studies 08/16/23 00:24 CT head/brain wo con Stat Hospital Course (1) Non-ST elevation NM (NSTEMI): Troponin peaked at 2500. Cardiology on board. Although echocardiogram showed LAD territory wall motion abnormalities, his EF is preserved. He probably has CHF with preserved EF. He has been started on 20 mg of oral Lasix He also has newly found pulmonary hypertension on echocardiogram. The plan is to continue medical management. If stents were placed, he would need to stay on DAPT for a year which would have been difficult with his history of anemia and MDS. Heparin drip was continued for 48 hours and then discontinued. We can attempt 81 mg of aspirin with close monitoring of his hemoglobin Imdur has been started today. Continue statin, metoprolol, Lipitor Hemoglobin stable now Follow-up with cardiology and PCP closely (2) Elevated d-dimer: D-dimer is elevated however age-adjusted D-dimer is negative I suspect the elevation in the D-dimer is secondary to the acute coronary event (3) Permanent atrial fibrillation: Was on Pradaxa in the past however per ER physician was stopped by cardiology in the past due to possible fall risk. (4) Neuropathy: Chronic Neurontin dependent continues cautiously (5) Primary hypothyroidism: Continue home dose Synthroid Plan Discharge to home today Total Time Total Time Spent Total Time Spent (In Minutes): 35 Discharge Plan Discharge Items Patient Disposition: Home - Self-Care Reason For Visit: CHEST PAIN / NON-STEMI Discharge Diagnosis: NSTEMI (Heart attack) Ischemic cardiomyopathy Activity: Resume your previous activity Non-emergency contact: Primary Care Provider Call non-emergency contact if: you have any medication questions and your symptoms worsen Follow-up/Referrals: Amando Washington MD [Primary Care Provider] - 08/20/23 7:45 am Diet: Heart Healthy and Low Sodium (2gm) Addtl Attending Provider Instructions: - Advised to follow-up with PCP in 1 week - Advised to follow-up with medical equipment repairer in 2 weeks Pending Studies at Discharge: No Stand-Alone Forms: My [facility] [employer] Medications and DC Order Prescriptions: New atorvastatin 40 mg Tablet 40 mg PO QPM 30 Days Qty: 30 0RF isosorbide mononitrate 30 mg Tablet Extended Release 24 Hr 30 mg PO QAM 30 Days Qty: 30 0RF aspirin 81 mg Tablet,Delayed Release (Dr/Ec) 81 mg PO QAM 30 Days Qty: 30 0RF furosemide 20 mg Tablet 20 mg PO QAM 30 Days Qty: 30 0RF Continued gabapentin 600 mg tablet 600 mg PO QID fluticasone propion-salmeterol [Wixela Inhub] 500-50 mcg/dose blister with device 1 ea INHALATION BID levothyroxine 112 mcg tablet 112 mcg PO DAILYBB cholecalciferol (vitamin D3) [Vitamin D3] 50 mcg (2,000 unit) Tablet 50 mcg PO DAILY metoprolol succinate 25 mg tablet extended release 24 hr 12.5 mg PO QAM fluticasone propionate 50 mcg/actuation spray,suspension 1 spray INTRANASAL BID PRN (Reason: Congestion) acetaminophen 325 mg Tablet 650 mg PO Q4H PRN (Reason: pain) Qty: 30 0RF Discontinued dabigatran etexilate 150 mg capsule 150 mg PO BID Discharge Orders: Discharge Order (Routine); Ordered 08/18/23 Ordered By: Lucille Peterson Admission Data Admit Date/Time: 08/16/23 04:19 Attending Provider: Lucille Peterson Admit Provider: Shayne Perez Primary Care Provider: Amando Washington Other Providers: Shayne Perez; Edgar Martinez Other Interventions: Discharge Summary Assessment (RN) Last Done: 08/18/23 12:49 Coding Level of Care Code 90978 INP/OBS DISCH >30 MIN Diagnoses Non-ST elevation NM (NSTEMI) I21.4 Elevated d-dimer R79.89 Permanent atrial fibrillation I48.21 Neuropathy G62.9 Primary hypothyroidism E03.9
--- NOTE | 2023-08-18 23:00 | Electrocardiogram Report ---
Test Reason : Blood Pressure : / mmHG Vent. Rate : 059 BPM Atrial Rate : 156 BPM P-R Int : 000 ms QRS Dur : 092 ms QT Int : 466 ms P-R-T Axes : 000 -89 070 degrees QTc Int : 461 ms Atrial fibrillation with slow ventricular response Incomplete right bundle branch block Left anterior fascicular block Lateral infarct (cited on or before 16-AUG-2023) T wave abnormality, consider anterolateral ischemia Abnormal ECG When compared with ECG of 16-AUG-2023 17:29, Questionable change in initial forces of Lateral leads T wave inversion now evident in Anterolateral leads Confirmed by Edgar Martinez ([id number]) on 08/18/2023 11:00:29 PM Referred By: REFERRED SELF Confirmed By:Edgar Martinez
--- NOTE | 2023-08-20 06:00 | Electrocardiogram Report ---
Test Reason : Blood Pressure : / mmHG Vent. Rate : 062 BPM Atrial Rate : 066 BPM P-R Int : 000 ms QRS Dur : 094 ms QT Int : 432 ms P-R-T Axes : 000 -71 105 degrees QTc Int : 438 ms Atrial fibrillation Incomplete right bundle branch block Left anterior fascicular block Possible Septal infarct T wave abnormality, consider anterolateral ischemia Abnormal ECG When compared with ECG of 17-AUG-2023 05:24, No significant change Confirmed by Edgar Martinez ([id number]) on 08/20/2023 6:00:18 AM Referred By: REFERRED SELF Confirmed By:Edgar Martinez
== END 2023-08-18 14:24 | disposition home or self-care (01) | DRG 280 ==
LOC: ED 23:41 → SUATTDRO 08-16 04:19 → 2S 08-16 04:19